=== PATIENT | female | born 1995 | race Asian ===

== ENCOUNTER 2023-01-08 05:57 | Inpatient (IN) ==
[2023-01-08] MEDS ORDERED: LIDOCAINE 1% LOCAL 20 ML VIAL INFIL PRN (07:34)
[2023-01-08] MEDS ORDERED: OXYTOCIN 30 UNITS/500 ML BAG IV PRN ×2 (07:34→07:39)
--- NOTE | 2023-01-08 07:45 | History & Physical Report ---
Date of Service January 08, 2023 Assessment & Plan (1) Supervision of normal first : Plan: Patient is a 27-year-old G1, P0 currently at 40 weeks 0 days gestational age with rupture of membranes. 1. Fetus: Cat 1 2. Labor: SROM without labor. Will start oxytocin. 3. GBS negative 4. Vitals: WNL (2) SROM (spontaneous rupture of membranes): History of Present Illness Primary Care Provider: NO PCP Patient is a 27-year-old G1, P0 currently at 40 weeks 0 days gestational age. Patient presents with bleeding and discharge. She is reporting some irregular contractions and is unsure about leakage of fluid. has been uncomplicated to date. OB Labs: Blood Type O Positive 06/01/22 Antibody Screen NEGATIVE 06/01/22 Hemoglobin 10.0 g/dl (12.0-16.0) L 10/19/22 Hematocrit 31.5 % (37.0-47.0) L 10/19/22 Mean Corpuscular Volume 83.4 fL (80.0-100.0) 06/01/22 Platelet Count 208 K/uL (130-400) 06/01/22 Rubella IgG Antibody Immune (Immune) 06/01/22 Rapid Plasma Reagin Nonreactive (Nonreactive) 06/01/22 Hepatitis B Surface Antigen. NON-REACTIVE (NON-REACTIVE) 06/01/22 Hepatitis C Antibody (EIA) NON-REACTIVE (NON-REACTIVE) 06/01/22 HIV (1&2) Ag and Ab Confirmation NON-REACTIVE (NON-REACTIVE) 06/01/22 Glucose 1 Hour 50 gm Load 111 mg/dl (70-130) 10/19/22 OB Optional Labs: Chlamydia trachomatis RNA Not Detected (NotDetected) 06/01/22 Neisseria gonorrhoeae RNA Not Detected (NotDetected) 06/01/22 Labs Reviewed: Declines cf/sma/cfdna/quad screen--mln Allergies Allergy/AdvReac Type Severity Reaction Status Date / Time No Known Allergies Allergy Verified 01/01/23 13:47 Home Medications Medication Instructions Recorded Confirmed Type prenat.vits,ector,yta-[id number]-xxpzl 1 tab PO DAILY 05/29/22 01/08/23 History ferrous sulfate See Rx Instructions .Route .COMPLEX 11/13/22 01/08/23 History Patient History Medical History (Updated 01/08/23 @ 07:44 by Gordo Kasper MD) History of chicken pox Surgical History (Updated 05/29/22 @ 13:24 by Agnieszka Dickson) No history of previous surgery Family History (Updated 05/29/22 @ 13:06 by Agnieszka Dickson) Denies family history of Ovarian cancer Breast cancer Colorectal cancer Social History (Updated 05/29/22 @ 13:08 by Agnieszka Dickson) Smoking Status: Never smoker Do You Dip or Chew Tobacco: No; Hx Alcohol Use: No Hx Substance Use: No Preferred Language: Persian Communication Ability: Effective Janitor Cleaner Required: No Beliefs That Will Affect Care: None marital status: marital status details: Luis Antonio (31) [phone] Current Living Situation: Spouse Current Living Situation Comment: lives with spouse, no pets current occupational status: unemployed Other Information That Helps Us Care for You: No Feels Safe at Home: Yes Safety Concerns: Feels Safe At This Time Physical Exam Constitutional: WD/WN, vitals as above Gastrointestinal (Abdomen): Percussion/Palpation: abdomen soft; abdomen nontender, no guarding and abdomen not rigid Psychiatric: A+Ox3, euthymic affect Genitourinary: normal external appearance OB Exam Abdomen: + vertex Manual OB Exam: + cervical dilation fingertip, + cervical effacement 50% and + station high OB Exam Monitor Tracing: + external FHT monitor used, + external uterine monitor used, + category I and + normal FHT variability There is noted to be a roughly golf ball sized clot on speculum exam. No bright red bleeding noted. Urine was noted to be bloody. There is noted to be equivocal pooling and positive ferning. Results & Data Vital Signs (Past 12 Hours) Vital Signs Temp Pulse Resp BP 01/08/23 06:22 36.7 C 18 01/08/23 07:10 16 01/08/23 07:10 36.4 C L 16 01/08/23 07:11 83 01/08/23 07:11 119/78 01/08/23 06:19 75 121/77 Coding Level of Care Code None Diagnoses Supervision of normal first Z34.00 SROM (spontaneous rupture of membranes)
[2023-01-08 08:23] LABS: Hematocrit (blood only) 37.9 % (37.0-47.0); Hemoglobin 12.1 g/dl (12.0-16.0); Mean Corpuscular Hemoglobin 26.1 pg (25.0-34.0); Mean Corpuscular Hgb Conc 31.9 g/dL (32.0-36.0); Mean Corpuscular Volume 81.9 fL (80.0-100.0); Mean Platelet Volume 11.6 fL (9.4-12.4); Platelet Count 191 K/uL (130-400); RDW Standard Deviation 53.1 fL (36.4-46.3); Red Blood Count 4.63 M/uL (4.20-5.40); White Blood Count 13.69 K/ul (4.8-10.8)
[2023-01-08] MEDS: LACTATED RINGER'S 1,000 ML IV PRN ×3 (08:25→18:37)
[2023-01-08] MEDS ORDERED: ePHEDrine sulfate 50 MG/ML AMP ONE (13:28)
[2023-01-08] MEDS ORDERED: fentaNYL citrate PF 100 MCG/2 ML VIAL ONE (13:29)
[2023-01-08] MEDS ORDERED: SODIUM CHLORIDE 0.9% PF INJ 10 ML VIAL ONE (13:29)
[2023-01-08] MEDS ORDERED: LIDOCAINE 2%/EPINEPHRINE 1:200,000 20 ML PF ONE (13:29)
[2023-01-08] MEDS ORDERED: fentaNYL 2MCG/ML ROPIVACAINE 1.25MG/ML 100 ML BAG EPI ONE (13:29)
[2023-01-08] MEDS ORDERED: BUPIVACAINE 0.25% PF 30 ML VIAL ONE (13:29)
--- NOTE | 2023-01-08 13:33 | Labor Progress Brief Note ---
Date of Service January 08, 2023 Subjective Getting uncomfortable Assessment & Plan (1) SROM (spontaneous rupture of membranes): Plan: 27 yo G1 at 40 wga admitted w/ srom VSS fetus cat 1 Labor - pit at 8, continue induction GBS neg epidural prn Admission and Anticipated Discharge Date Admission Date: January 08, 2023 Physical Exam Genitourinary: Manual OB Exam: + cervical dilation 1 cm, + cervical effacement 70% and + station -2 OB Exam Monitor Tracing: + external FHT monitor used, + external uterine monitor used (q3) and + category I (130/mod/+accel/-decel) Results & Data Vital Signs (Past 12 Hours) Vital Signs Temp Pulse Resp BP 01/08/23 06:22 98.1 F 18 01/08/23 13:03 74 01/08/23 13:03 102/71 01/08/23 12:03 75 01/08/23 12:03 108/72 01/08/23 11:03 20 01/08/23 11:03 98.2 F 20 01/08/23 11:03 82 01/08/23 11:03 112/70 01/08/23 10:03 80 01/08/23 10:03 105/70 01/08/23 09:02 20 01/08/23 09:02 98.2 F 20 01/08/23 09:02 78 01/08/23 09:02 109/69 01/08/23 08:29 86 01/08/23 08:29 112/70 01/08/23 07:10 16 01/08/23 07:10 97.5 F L 16 01/08/23 07:11 83 01/08/23 07:11 119/78 01/08/23 06:19 75 121/77 Coding Level of Care Code None Diagnoses SROM (spontaneous rupture of membranes)
--- NOTE | 2023-01-08 14:23 | Anesthesiology Consultation ---
Date of Service January 08, 2023 Assessment & Plan Chart Review Chart Review: Acceptable Risk for Labor Epidural Consults Requested none History Height/Weight Height: 5 ft 2 in Weight: 75.843 kg Allergies Allergy/AdvReac Type Severity Reaction Status Date / Time No Known Allergies Allergy Verified 01/01/23 13:47 Medications Home Medications Medication Instructions Recorded Confirmed Last Taken prenat.vits,ector,bek-ezxw-yeytl 1 tab PO DAILY 05/29/22 01/08/23 01/07/23 08:00 ferrous sulfate See Rx Instructions .Route .COMPLEX 11/13/22 01/08/23 01/06/23 08:00 Active Medications Generic Name Dose Route Start Last Admin Trade Name Freq PRN Reason Stop Dose Admin Lactated Ringer's 1,000 mls @ 125 mls/hr 01/08/23 07:34 01/08/23 13:46 Lr IV 01/10/23 07:33 999 mls/hr .Q8H PRN Administration L&D Protocol Protocol Oxytocin 30 units in 500 mls @ 8 mls/hr 01/08/23 07:39 01/08/23 10:00 Pitocin IV 01/10/23 07:38 0.48 units/hr .Q24H PRN 8 mls/hr Labor Induction/Augmentation Titration Protocol 0.48 UNITS/HR Past Medical History Medical History (Updated 01/08/23 @ 07:44 by Gordo Kasper MD) History of chicken pox Past Family History Family History (Updated 05/29/22 @ 13:06 by Agnieszka Dickson) Denies family history of Ovarian cancer Breast cancer Colorectal cancer Past Surgical History Surgical History (Updated 05/29/22 @ 13:24 by Agnieszka Dickson) No history of previous surgery Social History Smoking Status: Never smoker Do You Dip or Chew Tobacco: No Hx Alcohol Use: No Hx Substance Use: No Physical Exam Vital Signs Last Vital Signs Temp 36.8 C 01/08/23 11:03 Pulse 78 01/08/23 14:19 Resp 20 01/08/23 11:03 BP 102/57 L 01/08/23 14:19 Pulse Ox 100 01/08/23 14:17 Testing Laboratory Results 01/08/23 08:01
--- NOTE | 2023-01-08 14:24 | Anesthesiology Consultation ---
Date of Service January 08, 2023 Assessment & Plan Chart Review Chart Review: Acceptable Risk for Labor Epidural Consults Requested none History Height/Weight Height: 5 ft 2 in Weight: 75.843 kg Allergies Allergy/AdvReac Type Severity Reaction Status Date / Time No Known Allergies Allergy Verified 01/01/23 13:47 Medications Home Medications Medication Instructions Recorded Confirmed Last Taken prenat.vits,ector,sjm-ofhq-mdpky 1 tab PO DAILY 05/29/22 01/08/23 01/07/23 08:00 ferrous sulfate See Rx Instructions .Route .COMPLEX 11/13/22 01/08/23 01/06/23 08:00 Active Medications Generic Name Dose Route Start Last Admin Trade Name Freq PRN Reason Stop Dose Admin Lactated Ringer's 1,000 mls @ 125 mls/hr 01/08/23 07:34 01/08/23 13:46 Lr IV 01/10/23 07:33 999 mls/hr .Q8H PRN Administration L&D Protocol Protocol Oxytocin 30 units in 500 mls @ 8 mls/hr 01/08/23 07:39 01/08/23 10:00 Pitocin IV 01/10/23 07:38 0.48 units/hr .Q24H PRN 8 mls/hr Labor Induction/Augmentation Titration Protocol 0.48 UNITS/HR Past Medical History Medical History (Updated 01/08/23 @ 07:44 by Gordo Kasper MD) History of chicken pox Past Family History Family History (Updated 05/29/22 @ 13:06 by Agnieszka Dickson) Denies family history of Ovarian cancer Breast cancer Colorectal cancer Past Surgical History Surgical History (Updated 05/29/22 @ 13:24 by Agnieszka Dickson) No history of previous surgery Social History Smoking Status: Never smoker Do You Dip or Chew Tobacco: No Hx Alcohol Use: No Hx Substance Use: No Physical Exam Vital Signs Last Vital Signs Temp 36.8 C 01/08/23 11:03 Pulse 79 01/08/23 14:22 Resp 20 01/08/23 11:03 BP 102/57 L 01/08/23 14:19 Pulse Ox 100 01/08/23 14:22 Testing Laboratory Results 01/08/23 08:01
[2023-01-08] MEDS ORDERED: ePHEDrine sulfate 50 MG/ML AMP IV PRN (14:26)
[2023-01-08] MEDS ORDERED: BUPIVACAINE 0.25% PF 30 ML VIAL EPI STA (14:26)
[2023-01-08] MEDS ORDERED: NALOXONE HCL 0.4 MG/1 ML VIAL/CARP IV PRN (14:26)
[2023-01-08] MEDS ORDERED: SODIUM CHLORIDE 0.9% PF INJ 10 ML VIAL EPI STA (14:26)
[2023-01-08] MEDS ORDERED: fentaNYL citrate PF 100 MCG/2 ML VIAL EPI STA (14:26)
[2023-01-08] MEDS ORDERED: SODIUM CHLORIDE 0.9% PF INJ 10 ML VIAL EPI PRN (14:26)
[2023-01-08] MEDS ORDERED: NALBUPHINE HCL INJ 10 MG/ML AMP IV PRN (14:26)
[2023-01-08] MEDS ORDERED: BUPIVACAINE 0.25% PF 30 ML VIAL EPI PRN (14:26)
[2023-01-08] MEDS ORDERED: ROPIVACAINE 0.5% PF 5 MG/ML 20 ML VIAL EPI PRN (14:26)
[2023-01-08] MEDS ORDERED: diphenhydrAMINE 50 MG/ML VIAL IV PRN (14:26)
[2023-01-08] MEDS ORDERED: LIDOCAINE 2% MPF LOCAL 5 ML VIAL EPI PRN (14:26)
[2023-01-08] MEDS ORDERED: NALOXONE HCL 1 MG in SODIUM CHLORIDE 0.9% 1000ML 1,000 ML IV PRN (14:26)
[2023-01-08] MEDS ORDERED: LIDOCAINE 2%/EPINEPHRINE 1:200,000 20 ML PF EPI STA (14:26)
[2023-01-08] MEDS ORDERED: fentaNYL citrate PF 100 MCG/2 ML VIAL EPI PRN (14:26)
--- NOTE | 2023-01-08 18:15 | Labor Progress Brief Note ---
Date of Service January 08, 2023 Subjective Comfortable with epidural Assessment & Plan (1) SROM (spontaneous rupture of membranes): Plan Continue IOL Admission and Anticipated Discharge Date Admission Date: January 08, 2023 Physical Exam Genitourinary: / Rupture of a forebag for small amount of bloody show mixed with clear fluid. Vertex palpable, not well applied FHT Cat 1 [place] Q2 Pit @ 14 Results & Data Vital Signs (Past 12 Hours) Vital Signs Temp Pulse Resp BP Pulse Ox 01/08/23 06:22 98.1 F 18 01/08/23 18:07 100 01/08/23 18:07 78 01/08/23 18:06 92 01/08/23 18:05 83 01/08/23 18:06 95 H 01/08/23 18:05 112/70 01/08/23 18:02 92 01/08/23 18:02 99 H 01/08/23 17:57 100 01/08/23 17:57 90 01/08/23 17:54 92 01/08/23 17:54 82 01/08/23 17:52 100 01/08/23 17:52 79 01/08/23 17:49 74 01/08/23 17:49 113/66 01/08/23 17:47 99 01/08/23 17:47 84 01/08/23 17:45 92 01/08/23 17:45 81 01/08/23 17:42 94 01/08/23 17:42 72 01/08/23 17:37 99 01/08/23 17:37 75 01/08/23 17:35 80 01/08/23 17:35 90/51 L 01/08/23 17:32 99 01/08/23 17:32 74 01/08/23 17:27 99 01/08/23 17:27 73 01/08/23 17:22 99 01/08/23 17:22 72 01/08/23 17:20 71 01/08/23 17:20 91/51 L 01/08/23 17:17 100 01/08/23 17:17 103 H 01/08/23 17:12 100 01/08/23 17:12 70 01/08/23 17:07 100 01/08/23 17:07 81 01/08/23 17:04 71 01/08/23 17:04 104/66 01/08/23 17:02 100 01/08/23 17:02 79 01/08/23 16:57 99 01/08/23 16:57 79 01/08/23 16:52 100 01/08/23 16:52 78 01/08/23 16:50 76 01/08/23 16:50 104/63 01/08/23 16:47 100 01/08/23 16:47 78 01/08/23 16:36 20 01/08/23 16:36 98.4 F 20 01/08/23 16:42 100 01/08/23 16:42 76 01/08/23 16:37 100 01/08/23 16:37 88 01/08/23 16:36 70 01/08/23 16:36 108/72 01/08/23 16:32 100 01/08/23 16:32 85 01/08/23 16:27 100 01/08/23 16:27 98 H 01/08/23 16:22 100 01/08/23 16:22 79 01/08/23 16:19 81 01/08/23 16:19 117/74 01/08/23 16:17 100 01/08/23 16:17 84 01/08/23 16:15 87 L 01/08/23 16:15 87 01/08/23 16:12 98 01/08/23 16:12 86 01/08/23 15:05 20 01/08/23 15:05 97.9 F 20 01/08/23 16:07 100 01/08/23 16:07 85 01/08/23 16:05 80 01/08/23 16:05 101/68 01/08/23 16:02 96 01/08/23 16:02 85 01/08/23 15:57 100 01/08/23 15:57 73 01/08/23 15:52 100 01/08/23 15:52 95 H 01/08/23 15:49 83 01/08/23 15:49 102/68 01/08/23 15:47 99 01/08/23 15:47 77 01/08/23 15:42 99 01/08/23 15:42 76 01/08/23 15:37 100 01/08/23 15:37 89 01/08/23 15:34 88 01/08/23 15:34 105/69 01/08/23 15:32 100 01/08/23 15:32 79 01/08/23 15:27 100 01/08/23 15:27 74 01/08/23 15:22 100 01/08/23 15:22 85 01/08/23 15:20 82 01/08/23 15:20 107/72 01/08/23 15:17 100 01/08/23 15:17 88 01/08/23 15:12 99 01/08/23 15:12 95 H 01/08/23 15:07 100 01/08/23 15:07 75 01/08/23 15:05 82 01/08/23 15:05 103/67 01/08/23 15:02 100 01/08/23 15:02 73 01/08/23 14:57 100 01/08/23 14:57 85 01/08/23 14:52 100 01/08/23 14:52 75 01/08/23 14:51 74 01/08/23 14:51 108/66 01/08/23 14:47 100 01/08/23 14:47 84 01/08/23 14:42 100 01/08/23 14:42 80 01/08/23 14:37 100 01/08/23 14:37 82 01/08/23 14:34 86 01/08/23 14:34 117/71 01/08/23 14:32 100 01/08/23 14:32 79 01/08/23 14:29 91 01/08/23 14:29 77 01/08/23 14:28 73 01/08/23 14:28 98/55 L 01/08/23 14:27 100 01/08/23 14:27 77 01/08/23 14:23 71 01/08/23 14:23 108/63 01/08/23 14:22 100 01/08/23 14:22 79 01/08/23 14:19 78 01/08/23 14:19 102/57 L 01/08/23 14:17 100 01/08/23 14:17 77 01/08/23 14:12 99 01/08/23 14:12 79 01/08/23 14:12 75 01/08/23 14:12 101/65 01/08/23 14:10 69 01/08/23 14:10 102/66 01/08/23 14:07 99 01/08/23 14:07 73 01/08/23 14:08 76 01/08/23 14:08 103/66 01/08/23 14:06 72 01/08/23 14:06 103/63 01/08/23 14:04 70 01/08/23 14:04 104/65 01/08/23 14:02 98 01/08/23 14:02 71 01/08/23 14:02 80 01/08/23 14:02 106/71 01/08/23 14:00 94 01/08/23 14:00 82 01/08/23 14:00 103/64 01/08/23 13:58 84 01/08/23 13:58 102/65 01/08/23 13:57 96 01/08/23 13:57 78 01/08/23 13:52 99 01/08/23 13:52 80 01/08/23 13:50 93 01/08/23 13:50 89 01/08/23 13:47 98 01/08/23 13:47 74 01/08/23 13:42 98 01/08/23 13:42 89 01/08/23 13:37 98 01/08/23 13:37 71 01/08/23 13:03 74 01/08/23 13:03 102/71 01/08/23 12:03 75 01/08/23 12:03 108/72 01/08/23 11:03 20 01/08/23 11:03 98.2 F 20 01/08/23 11:03 82 01/08/23 11:03 112/70 01/08/23 10:03 80 01/08/23 10:03 105/70 01/08/23 09:02 20 01/08/23 09:02 98.2 F 20 01/08/23 09:02 78 01/08/23 09:02 109/69 01/08/23 08:29 86 01/08/23 08:29 112/70 01/08/23 07:10 16 01/08/23 07:10 97.5 F L 16 01/08/23 07:11 83 01/08/23 07:11 119/78 01/08/23 06:19 75 121/77 Coding Level of Care Code None Diagnoses SROM (spontaneous rupture of membranes)
--- NOTE | 2023-01-08 23:17 | Labor Progress Brief Note ---
Date of Service January 08, 2023 Subjective Comfortable with epidural Assessment & Plan (1) SROM (spontaneous rupture of membranes): Plan: IOL continues, progress has been demonstrated over the last few checks. Significant descent now head well applied. Admission and Anticipated Discharge Date Admission Date: January 08, 2023 Physical Exam Genitourinary: 90/0 Pit @ 16 [place] Q2m FHT Cat 1 Results & Data Vital Signs (Past 12 Hours) Vital Signs Temp Pulse Resp BP Pulse Ox 01/08/23 19:06 98.1 F 18 01/08/23 23:12 100 01/08/23 23:12 82 01/08/23 23:07 96 01/08/23 23:07 106 H 01/08/23 23:04 78 01/08/23 23:04 107/60 01/08/23 23:02 98 01/08/23 23:02 79 01/08/23 23:00 18 01/08/23 23:00 18 01/08/23 22:57 98 01/08/23 22:57 75 01/08/23 22:52 98 01/08/23 22:52 77 01/08/23 22:49 74 01/08/23 22:49 108/55 L 01/08/23 22:47 97 01/08/23 22:47 77 01/08/23 22:42 98 01/08/23 22:42 96 H 01/08/23 22:37 98 01/08/23 22:37 79 01/08/23 22:30 18 01/08/23 22:30 18 01/08/23 22:35 78 01/08/23 22:35 100/62 01/08/23 22:32 98 01/08/23 22:32 79 01/08/23 22:27 97 01/08/23 22:27 78 01/08/23 22:00 20 01/08/23 22:00 20 01/08/23 22:22 97 01/08/23 22:22 75 01/08/23 22:21 78 01/08/23 22:21 99/60 L 01/08/23 22:17 98 01/08/23 22:17 80 01/08/23 22:12 97 01/08/23 22:12 78 01/08/23 22:07 99 01/08/23 22:07 80 01/08/23 22:04 75 01/08/23 22:04 94/53 L 01/08/23 22:02 97 01/08/23 22:02 80 01/08/23 21:57 98 01/08/23 21:57 82 01/08/23 21:30 18 01/08/23 21:30 18 01/08/23 21:52 98 01/08/23 21:52 77 01/08/23 21:35 99.1 F 01/08/23 21:50 75 01/08/23 21:50 97/54 L 01/08/23 21:47 99 01/08/23 21:47 78 01/08/23 21:42 97 01/08/23 21:42 77 01/08/23 21:37 99 01/08/23 21:37 96 H 01/08/23 21:34 97 H 01/08/23 21:34 110/75 01/08/23 21:32 98 01/08/23 21:32 89 01/08/23 21:30 94 01/08/23 21:30 97 H 01/08/23 21:27 91 01/08/23 21:27 86 01/08/23 21:25 92 01/08/23 21:25 91 H 01/08/23 21:22 98 01/08/23 21:22 85 01/08/23 21:20 85 01/08/23 21:20 113/77 01/08/23 21:17 99 01/08/23 21:17 90 01/08/23 21:12 99 01/08/23 21:12 87 01/08/23 21:07 100 01/08/23 21:07 83 01/08/23 21:00 18 01/08/23 21:00 18 01/08/23 21:05 95 H 01/08/23 21:05 119/77 01/08/23 21:02 95 01/08/23 21:02 98 H 01/08/23 20:57 100 01/08/23 20:57 90 01/08/23 20:52 97 01/08/23 20:52 86 01/08/23 20:49 82 01/08/23 20:49 113/70 01/08/23 20:47 97 01/08/23 20:47 93 H 01/08/23 20:42 99 01/08/23 20:42 80 01/08/23 20:37 100 01/08/23 20:37 82 01/08/23 20:34 75 01/08/23 20:34 111/66 01/08/23 20:32 100 01/08/23 20:32 89 01/08/23 20:30 20 01/08/23 20:30 20 01/08/23 20:27 100 01/08/23 20:27 79 01/08/23 20:22 100 01/08/23 20:22 90 01/08/23 20:20 90 01/08/23 20:20 87 01/08/23 20:19 82 01/08/23 20:19 111/67 01/08/23 20:17 100 01/08/23 20:17 83 01/08/23 20:12 99 01/08/23 20:12 83 01/08/23 20:00 18 01/08/23 20:00 18 01/08/23 20:07 98 01/08/23 20:07 78 01/08/23 19:30 18 01/08/23 19:30 18 01/08/23 20:05 85 01/08/23 20:05 109/65 01/08/23 20:02 100 01/08/23 20:02 77 01/08/23 19:57 98 01/08/23 19:57 80 01/08/23 19:52 98 01/08/23 19:52 80 01/08/23 19:50 75 01/08/23 19:50 109/68 01/08/23 19:47 98 01/08/23 19:47 76 01/08/23 19:42 96 01/08/23 19:42 79 01/08/23 19:37 96 01/08/23 19:37 78 01/08/23 19:34 78 01/08/23 19:34 97/52 L 01/08/23 19:32 97 01/08/23 19:32 87 01/08/23 19:27 96 01/08/23 19:27 81 01/08/23 19:22 96 01/08/23 19:22 83 01/08/23 19:20 80 01/08/23 19:20 95/55 L 01/08/23 19:17 96 01/08/23 19:17 79 01/08/23 19:12 99 01/08/23 19:12 83 01/08/23 19:07 100 01/08/23 19:07 75 01/08/23 19:05 79 01/08/23 19:05 120/73 01/08/23 19:03 92 01/08/23 19:03 88 01/08/23 19:02 100 01/08/23 19:02 74 01/08/23 18:57 100 01/08/23 18:57 79 01/08/23 18:52 99 01/08/23 18:52 86 01/08/23 18:50 76 01/08/23 18:50 104/68 01/08/23 18:47 99 01/08/23 18:47 76 01/08/23 18:42 100 01/08/23 18:42 80 01/08/23 18:37 100 01/08/23 18:37 77 01/08/23 18:34 82 01/08/23 18:34 110/74 01/08/23 18:32 100 01/08/23 18:32 85 01/08/23 18:27 100 01/08/23 18:27 83 01/08/23 18:22 100 01/08/23 18:22 90 01/08/23 18:19 83 01/08/23 18:19 109/72 01/08/23 18:17 100 01/08/23 18:17 81 01/08/23 18:17 92 01/08/23 18:17 84 01/08/23 18:12 100 01/08/23 18:12 85 01/08/23 18:07 100 01/08/23 18:07 78 01/08/23 18:06 92 01/08/23 18:05 83 01/08/23 18:06 95 H 01/08/23 18:05 112/70 01/08/23 18:02 92 01/08/23 18:02 99 H 01/08/23 17:57 100 01/08/23 17:57 90 01/08/23 17:54 92 01/08/23 17:54 82 01/08/23 17:52 100 01/08/23 17:52 79 01/08/23 17:49 74 01/08/23 17:49 113/66 01/08/23 17:47 99 01/08/23 17:47 84 01/08/23 17:45 92 01/08/23 17:45 81 01/08/23 17:42 94 01/08/23 17:42 72 01/08/23 17:37 99 01/08/23 17:37 75 01/08/23 17:35 80 01/08/23 17:35 90/51 L 01/08/23 17:32 99 01/08/23 17:32 74 01/08/23 17:27 99 01/08/23 17:27 73 01/08/23 17:22 99 01/08/23 17:22 72 01/08/23 17:20 71 01/08/23 17:20 91/51 L 01/08/23 17:17 100 01/08/23 17:17 103 H 01/08/23 17:12 100 01/08/23 17:12 70 01/08/23 17:07 100 01/08/23 17:07 81 01/08/23 17:04 71 01/08/23 17:04 104/66 01/08/23 17:02 100 01/08/23 17:02 79 01/08/23 16:57 99 01/08/23 16:57 79 01/08/23 16:52 100 01/08/23 16:52 78 01/08/23 16:50 76 01/08/23 16:50 104/63 01/08/23 16:47 100 01/08/23 16:47 78 01/08/23 16:36 20 01/08/23 16:36 98.4 F 20 01/08/23 16:42 100 01/08/23 16:42 76 01/08/23 16:37 100 01/08/23 16:37 88 01/08/23 16:36 70 01/08/23 16:36 108/72 01/08/23 16:32 100 01/08/23 16:32 85 01/08/23 16:27 100 01/08/23 16:27 98 H 01/08/23 16:22 100 01/08/23 16:22 79 01/08/23 16:19 81 01/08/23 16:19 117/74 01/08/23 16:17 100 01/08/23 16:17 84 01/08/23 16:15 87 L 01/08/23 16:15 87 01/08/23 16:12 98 01/08/23 16:12 86 01/08/23 15:05 20 01/08/23 15:05 97.9 F 20 01/08/23 16:07 100 01/08/23 16:07 85 01/08/23 16:05 80 01/08/23 16:05 101/68 01/08/23 16:02 96 01/08/23 16:02 85 01/08/23 15:57 100 01/08/23 15:57 73 01/08/23 15:52 100 01/08/23 15:52 95 H 01/08/23 15:49 83 01/08/23 15:49 102/68 01/08/23 15:47 99 01/08/23 15:47 77 01/08/23 15:42 99 01/08/23 15:42 76 01/08/23 15:37 100 01/08/23 15:37 89 01/08/23 15:34 88 01/08/23 15:34 105/69 01/08/23 15:32 100 01/08/23 15:32 79 01/08/23 15:27 100 01/08/23 15:27 74 01/08/23 15:22 100 01/08/23 15:22 85 01/08/23 15:20 82 01/08/23 15:20 107/72 01/08/23 15:17 100 01/08/23 15:17 88 01/08/23 15:12 99 01/08/23 15:12 95 H 01/08/23 15:07 100 01/08/23 15:07 75 01/08/23 15:05 82 01/08/23 15:05 103/67 01/08/23 15:02 100 01/08/23 15:02 73 01/08/23 14:57 100 01/08/23 14:57 85 01/08/23 14:52 100 01/08/23 14:52 75 01/08/23 14:51 74 01/08/23 14:51 108/66 01/08/23 14:47 100 01/08/23 14:47 84 01/08/23 14:42 100 01/08/23 14:42 80 01/08/23 14:37 100 01/08/23 14:37 82 01/08/23 14:34 86 01/08/23 14:34 117/71 01/08/23 14:32 100 01/08/23 14:32 79 01/08/23 14:29 91 01/08/23 14:29 77 01/08/23 14:28 73 01/08/23 14:28 98/55 L 01/08/23 14:27 100 01/08/23 14:27 77 01/08/23 14:23 71 01/08/23 14:23 108/63 01/08/23 14:22 100 01/08/23 14:22 79 01/08/23 14:19 78 01/08/23 14:19 102/57 L 01/08/23 14:17 100 01/08/23 14:17 77 01/08/23 14:12 99 01/08/23 14:12 79 01/08/23 14:12 75 01/08/23 14:12 101/65 01/08/23 14:10 69 01/08/23 14:10 102/66 01/08/23 14:07 99 01/08/23 14:07 73 01/08/23 14:08 76 01/08/23 14:08 103/66 01/08/23 14:06 72 01/08/23 14:06 103/63 01/08/23 14:04 70 01/08/23 14:04 104/65 01/08/23 14:02 98 01/08/23 14:02 71 01/08/23 14:02 80 01/08/23 14:02 106/71 01/08/23 14:00 94 01/08/23 14:00 82 01/08/23 14:00 103/64 01/08/23 13:58 84 01/08/23 13:58 102/65 01/08/23 13:57 96 01/08/23 13:57 78 01/08/23 13:52 99 01/08/23 13:52 80 01/08/23 13:50 93 01/08/23 13:50 89 01/08/23 13:47 98 01/08/23 13:47 74 01/08/23 13:42 98 01/08/23 13:42 89 01/08/23 13:37 98 01/08/23 13:37 71 01/08/23 13:03 74 01/08/23 13:03 102/71 01/08/23 12:03 75 01/08/23 12:03 108/72 Coding Level of Care Code None Diagnoses SROM (spontaneous rupture of membranes)
[2023-01-09] MEDS: fentaNYL 2MCG/ML ROPIVACAINE 1.25MG/ML 100 ML BAG EPI PRN ×2 (00:16→09:03)
[2023-01-09] MEDS: LACTATED RINGER'S 1,000 ML IV PRN ×2 (02:29→08:11)
--- NOTE | 2023-01-09 07:18 | Labor Progress Brief Note ---
Date of Service January 09, 2023 Subjective Comfortable with epidural Assessment & Plan (1) SROM (spontaneous rupture of membranes): Plan: Patient and FOB counseled on the swelling in the anterior cervical lip, and the slowness of cervical change, being warning signs of possible CPD. At this time there is definite change from prior exam, however, and patient remains very motivated to avoid , and desires continuation of IOL. Admission and Anticipated Discharge Date Admission Date: January 08, 2023 Physical Exam Genitourinary: /+1 with significant molding, and notable swelling of the anterior cervical lip FHT 160 mod tamiko -acc -dec [place] Q2 Pit @ 16 Results & Data Vital Signs (Past 12 Hours) Vital Signs Temp Pulse Resp BP Pulse Ox 01/09/23 07:07 82 99 01/09/23 07:00 18 01/09/23 07:00 18 01/09/23 07:05 98.2 F 81 16 109/62 01/09/23 07:02 83 100 01/09/23 06:57 84 100 01/09/23 06:52 80 100 01/09/23 06:50 80 107/63 01/09/23 06:47 79 100 01/09/23 06:30 20 01/09/23 06:30 20 01/09/23 06:42 83 100 01/09/23 06:37 87 99 01/09/23 06:34 77 114/68 01/09/23 06:32 82 97 01/09/23 06:27 89 96 01/09/23 06:22 90 97 01/09/23 06:20 95 H 109/66 01/09/23 06:17 96 H 99 01/09/23 06:00 18 01/09/23 06:00 18 01/09/23 06:12 91 H 98 01/09/23 06:07 90 96 01/09/23 06:06 91 H 99/55 L 01/09/23 06:02 88 97 01/09/23 05:57 85 98 01/09/23 05:52 82 98 01/09/23 05:50 99.0 F 01/09/23 05:49 80 98/56 L 01/09/23 05:47 97 H 99 01/09/23 05:42 108 H 98 01/09/23 05:30 18 01/09/23 05:30 18 01/09/23 05:37 92 H 96 01/09/23 05:34 86 107/65 01/09/23 05:32 86 97 01/09/23 05:27 88 96 01/09/23 05:22 90 97 01/09/23 05:19 83 109/68 01/09/23 05:17 90 97 01/09/23 05:12 89 96 01/09/23 05:07 88 96 01/09/23 05:04 82 112/72 01/09/23 05:02 84 98 01/09/23 04:57 84 98 01/09/23 04:52 84 97 01/09/23 04:49 82 107/70 01/09/23 04:47 80 97 01/09/23 04:42 80 97 01/09/23 04:37 84 98 01/09/23 04:34 83 110/71 01/09/23 04:32 78 99 01/09/23 04:27 79 98 01/09/23 04:22 77 100 01/09/23 04:19 75 106/63 01/09/23 04:17 80 99 01/09/23 04:12 78 98 01/09/23 04:07 83 98 01/09/23 04:04 76 107/63 01/09/23 04:02 77 98 01/09/23 04:00 18 01/09/23 04:00 18 01/09/23 03:57 93 H 98 01/09/23 03:52 92 H 100 01/09/23 03:49 90 115/71 01/09/23 03:47 98.4 F 79 98 01/09/23 03:42 83 98 01/09/23 03:37 79 98 01/09/23 03:34 81 112/68 01/09/23 03:30 20 01/09/23 03:30 20 01/09/23 03:32 81 99 01/09/23 03:27 78 100 01/09/23 03:22 84 100 01/09/23 03:19 73 100/57 L 01/09/23 03:17 75 99 01/09/23 03:12 76 97 01/09/23 03:07 76 99 01/09/23 03:05 78 103/61 01/09/23 03:00 18 01/09/23 03:00 18 01/09/23 03:02 79 100 01/09/23 02:57 88 100 01/09/23 02:52 79 99 01/09/23 02:49 78 98/60 L 01/09/23 02:47 81 97 01/09/23 02:42 80 97 01/09/23 02:37 76 98 01/09/23 02:35 86 105/64 01/09/23 02:32 83 97 01/09/23 02:30 18 01/09/23 02:30 18 01/09/23 02:27 82 98 01/09/23 02:22 83 98 01/09/23 02:19 90 123/72 01/09/23 02:17 87 98 01/09/23 02:12 87 98 01/09/23 02:07 92 H 99 01/09/23 02:04 89 113/75 01/09/23 02:00 20 01/09/23 02:00 20 01/09/23 02:02 96 H 99 01/09/23 01:57 103 H 97 01/09/23 01:52 87 97 01/09/23 01:49 88 108/75 01/09/23 01:47 93 H 99 01/09/23 01:42 86 98 01/09/23 01:37 79 97 01/09/23 01:34 75 100/60 01/09/23 01:32 83 99 01/09/23 01:21 99.0 F 01/09/23 01:30 18 01/09/23 01:30 18 01/09/23 01:27 88 96 01/09/23 01:22 89 100 01/09/23 01:17 82 98 01/09/23 01:12 80 98 01/09/23 01:00 18 01/09/23 01:00 18 01/09/23 01:07 98 H 99 01/09/23 01:05 91 H 120/71 01/09/23 01:02 76 98 01/09/23 00:57 76 98 01/09/23 00:52 79 97 01/09/23 00:49 78 107/66 01/09/23 00:47 80 98 01/09/23 00:42 83 99 01/09/23 00:30 20 01/09/23 00:30 20 06/10/23 00:37 81 100 01/09/23 00:34 77 108/59 L 01/09/23 00:32 77 99 01/09/23 00:27 78 98 01/09/23 00:00 20 01/09/23 00:00 20 01/09/23 00:22 78 98 01/09/23 00:21 86 117/63 01/09/23 00:17 110 H 99 01/09/23 00:12 81 96 01/09/23 00:07 79 96 01/09/23 00:05 80 108/71 01/09/23 00:02 77 96 01/08/23 23:57 98 01/08/23 23:57 79 01/08/23 23:52 97 01/08/23 23:52 81 01/08/23 23:30 18 01/08/23 23:30 18 01/08/23 23:49 77 01/08/23 23:49 113/71 01/08/23 23:47 97 01/08/23 23:47 85 01/08/23 23:42 97 01/08/23 23:42 80 01/08/23 23:37 99 01/08/23 23:37 81 01/08/23 23:35 83 01/08/23 23:35 109/71 01/08/23 23:32 98 01/08/23 23:32 82 01/08/23 23:27 98 01/08/23 23:27 82 01/08/23 23:22 98 01/08/23 23:22 75 01/08/23 23:10 98.2 F 01/08/23 23:19 79 01/08/23 23:19 113/68 01/08/23 23:17 98 01/08/23 23:17 79 01/08/23 23:12 100 01/08/23 23:12 82 01/08/23 23:07 96 01/08/23 23:07 106 H 01/08/23 23:04 78 01/08/23 23:04 107/60 01/08/23 23:02 98 01/08/23 23:02 79 01/08/23 23:00 18 01/08/23 23:00 18 01/08/23 22:57 98 01/08/23 22:57 75 06/09/23 22:52 98 01/08/23 22:52 77 01/08/23 22:49 74 01/08/23 22:49 108/55 L 01/08/23 22:47 97 01/08/23 22:47 77 01/08/23 22:42 98 01/08/23 22:42 96 H 01/08/23 22:37 98 01/08/23 22:37 79 01/08/23 22:30 18 01/08/23 22:30 18 01/08/23 22:35 78 01/08/23 22:35 100/62 01/08/23 22:32 98 01/08/23 22:32 79 01/08/23 22:27 97 01/08/23 22:27 78 01/08/23 22:00 20 01/08/23 22:00 20 01/08/23 22:22 97 01/08/23 22:22 75 01/08/23 22:21 78 01/08/23 22:21 99/60 L 01/08/23 22:17 98 01/08/23 22:17 80 01/08/23 22:12 97 01/08/23 22:12 78 01/08/23 22:07 99 01/08/23 22:07 80 01/08/23 22:04 75 01/08/23 22:04 94/53 L 01/08/23 22:02 97 01/08/23 22:02 80 01/08/23 21:57 98 01/08/23 21:57 82 01/08/23 21:30 18 01/08/23 21:30 18 01/08/23 21:52 98 01/08/23 21:52 77 01/08/23 21:35 99.1 F 01/08/23 21:50 75 01/08/23 21:50 97/54 L 01/08/23 21:47 99 01/08/23 21:47 78 01/08/23 21:42 97 01/08/23 21:42 77 01/08/23 21:37 99 01/08/23 21:37 96 H 01/08/23 21:34 97 H 01/08/23 21:34 110/75 01/08/23 21:32 98 01/08/23 21:32 89 01/08/23 21:30 94 01/08/23 21:30 97 H 01/08/23 21:27 91 01/08/23 21:27 86 01/08/23 21:25 92 01/08/23 21:25 91 H 01/08/23 21:22 98 01/08/23 21:22 85 01/08/23 21:20 85 01/08/23 21:20 113/77 01/08/23 21:17 99 01/08/23 21:17 90 01/08/23 21:12 99 01/08/23 21:12 87 01/08/23 21:07 100 01/08/23 21:07 83 01/08/23 21:00 18 01/08/23 21:00 18 01/08/23 21:05 95 H 01/08/23 21:05 119/77 01/08/23 21:02 95 01/08/23 21:02 98 H 01/08/23 20:57 100 01/08/23 20:57 90 01/08/23 20:52 97 01/08/23 20:52 86 01/08/23 20:49 82 01/08/23 20:49 113/70 01/08/23 20:47 97 01/08/23 20:47 93 H 01/08/23 20:42 99 01/08/23 20:42 80 01/08/23 20:37 100 01/08/23 20:37 82 01/08/23 20:34 75 01/08/23 20:34 111/66 01/08/23 20:32 100 01/08/23 20:32 89 01/08/23 20:30 20 01/08/23 20:30 20 01/08/23 20:27 100 01/08/23 20:27 79 01/08/23 20:22 100 01/08/23 20:22 90 01/08/23 20:20 90 01/08/23 20:20 87 01/08/23 20:19 82 01/08/23 20:19 111/67 01/08/23 20:17 100 01/08/23 20:17 83 01/08/23 20:12 99 01/08/23 20:12 83 01/08/23 20:00 18 01/08/23 20:00 18 01/08/23 20:07 98 01/08/23 20:07 78 01/08/23 19:30 18 01/08/23 19:30 18 01/08/23 20:05 85 01/08/23 20:05 109/65 01/08/23 20:02 100 01/08/23 20:02 77 01/08/23 19:57 98 01/08/23 19:57 80 01/08/23 19:52 98 01/08/23 19:52 80 01/08/23 19:50 75 01/08/23 19:50 109/68 01/08/23 19:47 98 01/08/23 19:47 76 01/08/23 19:42 96 01/08/23 19:42 79 01/08/23 19:37 96 01/08/23 19:37 78 01/08/23 19:34 78 01/08/23 19:34 97/52 L 01/08/23 19:32 97 01/08/23 19:32 87 01/08/23 19:27 96 01/08/23 19:27 81 01/08/23 19:22 96 01/08/23 19:22 83 01/08/23 19:20 80 01/08/23 19:20 95/55 L 01/08/23 19:17 96 01/08/23 19:17 79 01/08/23 19:12 99 01/08/23 19:12 83 Coding Level of Care Code None Diagnoses SROM (spontaneous rupture of membranes)
--- NOTE | 2023-01-09 09:00 | Labor Progress Brief Note ---
Date of Service January 09, 2023 Subjective Comfortable with epidural Assessment & Plan (1) SROM (spontaneous rupture of membranes): Plan: 27 yo G1 at 40 1/7 [facility] admitted w/ prom VSS Fetus cat 1 Labor - pit now at 20, discussed the anterior lip as was previously noted. Discussed concerns regarding swelling as well, but can continue titration, consider iupc but can keep going up on pit if needed GBS neg epidural in place Admission and Anticipated Discharge Date Admission Date: January 08, 2023 Physical Exam Genitourinary: OB Exam Monitor Tracing: + external uterine monitor used (q3) and + category I (155-160/mod/+accel/-decel) SVE ~6/80/0 but anterior lip does have swelling as previously noted. Results & Data Vital Signs (Past 12 Hours) Vital Signs Temp Pulse Resp BP Pulse Ox 01/09/23 08:52 87 98 01/09/23 08:49 78 112/68 01/09/23 08:47 83 100 01/09/23 08:42 83 98 01/09/23 08:37 82 97 01/09/23 08:34 69 110/66 01/09/23 08:32 76 98 01/09/23 08:27 77 98 01/09/23 08:22 86 98 01/09/23 08:19 72 110/67 01/09/23 08:17 75 97 01/09/23 08:12 99.1 F 77 18 98 01/09/23 08:07 78 99 01/09/23 08:04 78 115/71 01/09/23 08:02 78 99 01/09/23 07:57 78 97 01/09/23 07:52 77 98 01/09/23 07:50 77 112/69 01/09/23 07:47 79 99 01/09/23 07:42 85 99 01/09/23 07:37 79 99 01/09/23 07:34 79 112/70 01/09/23 07:32 80 100 01/09/23 07:27 80 100 01/09/23 07:22 83 100 01/09/23 07:19 82 102/56 L 01/09/23 07:17 90 100 01/09/23 07:12 77 100 01/09/23 07:07 82 99 01/09/23 07:00 18 01/09/23 07:00 18 01/09/23 07:05 98.2 F 81 16 109/62 01/09/23 07:02 83 100 01/09/23 06:57 84 100 01/09/23 06:52 80 100 01/09/23 06:50 80 107/63 01/09/23 06:47 79 100 01/09/23 06:30 20 01/09/23 06:30 20 01/09/23 06:42 83 100 01/09/23 06:37 87 99 01/09/23 06:34 77 114/68 01/09/23 06:32 82 97 01/09/23 06:27 89 96 01/09/23 06:22 90 97 01/09/23 06:20 95 H 109/66 01/09/23 06:17 96 H 99 01/09/23 06:00 18 01/09/23 06:00 18 01/09/23 06:12 91 H 98 01/09/23 06:07 90 96 01/09/23 06:06 91 H 99/55 L 01/09/23 06:02 88 97 01/09/23 05:57 85 98 01/09/23 05:52 82 98 01/09/23 05:50 99.0 F 01/09/23 05:49 80 98/56 L 01/09/23 05:47 97 H 99 01/09/23 05:42 108 H 98 01/09/23 05:30 18 01/09/23 05:30 18 01/09/23 05:37 92 H 96 01/09/23 05:34 86 107/65 01/09/23 05:32 86 97 01/09/23 05:27 88 96 01/09/23 05:22 90 97 01/09/23 05:19 83 109/68 01/09/23 05:17 90 97 01/09/23 05:12 89 96 01/09/23 05:07 88 96 01/09/23 05:04 82 112/72 01/09/23 05:02 84 98 01/09/23 04:57 84 98 01/09/23 04:52 84 97 01/09/23 04:49 82 107/70 01/09/23 04:47 80 97 01/09/23 04:42 80 97 01/09/23 04:37 84 98 01/09/23 04:34 83 110/71 01/09/23 04:32 78 99 01/09/23 04:27 79 98 01/09/23 04:22 77 100 01/09/23 04:19 75 106/63 01/09/23 04:17 80 99 01/09/23 04:12 78 98 01/09/23 04:07 83 98 01/09/23 04:04 76 107/63 01/09/23 04:02 77 98 01/09/23 04:00 18 01/09/23 04:00 18 01/09/23 03:57 93 H 98 01/09/23 03:52 92 H 100 01/09/23 03:49 90 115/71 01/09/23 03:47 98.4 F 79 98 01/09/23 03:42 83 98 01/09/23 03:37 79 98 01/09/23 03:34 81 112/68 01/09/23 03:30 20 01/09/23 03:30 20 01/09/23 03:32 81 99 01/09/23 03:27 78 100 01/09/23 03:22 84 100 01/09/23 03:19 73 100/57 L 01/09/23 03:17 75 99 01/09/23 03:12 76 97 01/09/23 03:07 76 99 01/09/23 03:05 78 103/61 01/09/23 03:00 18 01/09/23 03:00 18 01/09/23 03:02 79 100 01/09/23 02:57 88 100 01/09/23 02:52 79 99 01/09/23 02:49 78 98/60 L 01/09/23 02:47 81 97 01/09/23 02:42 80 97 01/09/23 02:37 76 98 01/09/23 02:35 86 105/64 01/09/23 02:32 83 97 01/09/23 02:30 18 01/09/23 02:30 18 01/09/23 02:27 82 98 01/09/23 02:22 83 98 01/09/23 02:19 90 123/72 01/09/23 02:17 87 98 01/09/23 02:12 87 98 01/09/23 02:07 92 H 99 01/09/23 02:04 89 113/75 01/09/23 02:00 20 01/09/23 02:00 20 01/09/23 02:02 96 H 99 01/09/23 01:57 103 H 97 01/09/23 01:52 87 97 01/09/23 01:49 88 108/75 01/09/23 01:47 93 H 99 01/09/23 01:42 86 98 01/09/23 01:37 79 97 01/09/23 01:34 75 100/60 01/09/23 01:32 83 99 01/09/23 01:21 99.0 F 01/09/23 01:30 18 01/09/23 01:30 18 01/09/23 01:27 88 96 01/09/23 01:22 89 100 01/09/23 01:17 82 98 01/09/23 01:12 80 98 01/09/23 01:00 18 01/09/23 01:00 18 01/09/23 01:07 98 H 99 01/09/23 01:05 91 H 120/71 01/09/23 01:02 76 98 01/09/23 00:57 76 98 01/09/23 00:52 79 97 01/09/23 00:49 78 107/66 01/09/23 00:47 80 98 01/09/23 00:42 83 99 01/09/23 00:30 20 01/09/23 00:30 20 01/09/23 00:37 81 100 01/09/23 00:34 77 108/59 L 01/09/23 00:32 77 99 01/09/23 00:27 78 98 01/09/23 00:00 20 01/09/23 00:00 20 01/09/23 00:22 78 98 01/09/23 00:21 86 117/63 01/09/23 00:17 110 H 99 01/09/23 00:12 81 96 01/09/23 00:07 79 96 01/09/23 00:05 80 108/71 01/09/23 00:02 77 96 01/08/23 23:57 98 01/08/23 23:57 79 01/08/23 23:52 97 01/08/23 23:52 81 01/08/23 23:30 18 01/08/23 23:30 18 01/08/23 23:49 77 01/08/23 23:49 113/71 01/08/23 23:47 97 01/08/23 23:47 85 01/08/23 23:42 97 01/08/23 23:42 80 01/08/23 23:37 99 01/08/23 23:37 81 01/08/23 23:35 83 01/08/23 23:35 109/71 01/08/23 23:32 98 01/08/23 23:32 82 01/08/23 23:27 98 01/08/23 23:27 82 01/08/23 23:22 98 01/08/23 23:22 75 01/08/23 23:10 98.2 F 01/08/23 23:19 79 01/08/23 23:19 113/68 01/08/23 23:17 98 01/08/23 23:17 79 01/08/23 23:12 100 01/08/23 23:12 82 01/08/23 23:07 96 01/08/23 23:07 106 H 01/08/23 23:04 78 01/08/23 23:04 107/60 01/08/23 23:02 98 01/08/23 23:02 79 01/08/23 23:00 18 01/08/23 23:00 18 01/08/23 22:57 98 01/08/23 22:57 75 01/08/23 22:52 98 01/08/23 22:52 77 01/08/23 22:49 74 01/08/23 22:49 108/55 L 01/08/23 22:47 97 01/08/23 22:47 77 01/08/23 22:42 98 01/08/23 22:42 96 H 01/08/23 22:37 98 01/08/23 22:37 79 01/08/23 22:30 18 01/08/23 22:30 18 01/08/23 22:35 78 01/08/23 22:35 100/62 01/08/23 22:32 98 01/08/23 22:32 79 01/08/23 22:27 97 01/08/23 22:27 78 01/08/23 22:00 20 01/08/23 22:00 20 01/08/23 22:22 97 01/08/23 22:22 75 01/08/23 22:21 78 01/08/23 22:21 99/60 L 01/08/23 22:17 98 01/08/23 22:17 80 01/08/23 22:12 97 01/08/23 22:12 78 01/08/23 22:07 99 01/08/23 22:07 80 01/08/23 22:04 75 01/08/23 22:04 94/53 L 01/08/23 22:02 97 01/08/23 22:02 80 01/08/23 21:57 98 01/08/23 21:57 82 01/08/23 21:30 18 01/08/23 21:30 18 01/08/23 21:52 98 01/08/23 21:52 77 01/08/23 21:35 99.1 F 01/08/23 21:50 75 01/08/23 21:50 97/54 L 01/08/23 21:47 99 01/08/23 21:47 78 01/08/23 21:42 97 01/08/23 21:42 77 01/08/23 21:37 99 01/08/23 21:37 96 H 01/08/23 21:34 97 H 01/08/23 21:34 110/75 01/08/23 21:32 98 01/08/23 21:32 89 01/08/23 21:30 94 01/08/23 21:30 97 H 01/08/23 21:27 91 01/08/23 21:27 86 01/08/23 21:25 92 01/08/23 21:25 91 H 01/08/23 21:22 98 01/08/23 21:22 85 01/08/23 21:20 85 01/08/23 21:20 113/77 01/08/23 21:17 99 01/08/23 21:17 90 01/08/23 21:12 99 01/08/23 21:12 87 01/08/23 21:07 100 01/08/23 21:07 83 01/08/23 21:00 18 01/08/23 21:00 18 01/08/23 21:05 95 H 01/08/23 21:05 119/77 01/08/23 21:02 95 01/08/23 21:02 98 H 01/08/23 20:57 100 01/08/23 20:57 90 Coding Level of Care Code None Diagnoses SROM (spontaneous rupture of membranes)
[2023-01-09] MEDS ORDERED: ACETAMINOPHEN 500 MG TAB ONE (10:17)
--- NOTE | 2023-01-09 10:34 | Labor Progress Brief Note ---
Date of Service January 09, 2023 Subjective pt and requesting discussion as baby slightly more tachy Assessment & Plan (1) SROM (spontaneous rupture of membranes): Plan: 27 yo G1 at 40 1/7 [facility] admitted w/ prom VSS Fetus cat 2 but still good variability Labor - IUPC in place, exam seems unchanged. Pt and had noted that baseline was slowly going up and wondering about CS. Pt has not had a temp but IV bolus was given and tachy seems to be improving a bit. They are wondering if should move to CS. Discussed at this time does not have dx of chorio but may be brewing with baseline slowly increasing though reassuring has returned a bit to normal. Again discussed her cervix and no change at this point but not much time has passed, there is no way to predict whether she will get to 10cm or if will be able to push baby out as well however prolonged labor curve is concerning as well as her exam. I did discuss tylenol to see if this would help with baseline and was planning on giving if fluids did not improve. They feel that if she is not progressing at next check given it sounds like minimal change from overnight to now, they would like to proceed with CS. Discussed indications, risks, benefits, alternatives with risks including infection, bleeding, injury to adjacent structures (bowel, bladder, ureters, blood vessels, nerves, baby), possible need for blood transfusion and/or life saving hysterectomy, VTE. They verbalized understanding. Admission and Anticipated Discharge Date Admission Date: January 08, 2023 Physical Exam Genitourinary: OB Exam Monitor Tracing: + external FHT monitor used, + intra- uterine pressure catheter used and + category II (baseline was 165-170 a bit ago, coming back to 160s. mod tamiko, +acc, -dec) Results & Data Vital Signs (Past 12 Hours) Vital Signs Temp Pulse Resp BP Pulse Ox 01/09/23 10:22 77 97 01/09/23 10:05 18 01/09/23 10:05 98.2 F 18 01/09/23 10:17 80 98 01/09/23 10:12 74 99 01/09/23 10:07 81 98 01/09/23 10:04 75 109/71 01/09/23 10:02 75 99 01/09/23 09:57 74 100 01/09/23 09:52 75 100 01/09/23 09:50 74 107/67 01/09/23 09:47 72 99 01/09/23 09:42 74 99 01/09/23 09:35 20 01/09/23 09:35 99.3 F 20 01/09/23 09:37 81 99 01/09/23 09:34 76 113/60 01/09/23 09:32 72 100 01/09/23 09:27 76 100 01/09/23 09:22 74 99 01/09/23 09:19 72 108/63 01/09/23 09:17 75 98 01/09/23 09:10 16 01/09/23 09:10 99.0 F 16 01/09/23 09:12 75 98 01/09/23 09:07 75 98 01/09/23 09:04 74 92/55 L 01/09/23 09:02 74 99 01/09/23 08:57 74 99 01/09/23 08:52 87 98 01/09/23 08:49 78 112/68 01/09/23 08:47 83 100 01/09/23 08:42 83 98 01/09/23 08:37 82 97 01/09/23 08:34 69 110/66 01/09/23 08:32 76 98 01/09/23 08:27 77 98 01/09/23 08:22 86 98 01/09/23 08:19 72 110/67 01/09/23 08:17 75 97 01/09/23 08:12 99.1 F 77 18 98 01/09/23 08:07 78 99 01/09/23 08:04 78 115/71 01/09/23 08:02 78 99 01/09/23 07:57 78 97 01/09/23 07:52 77 98 01/09/23 07:50 77 112/69 01/09/23 07:47 79 99 01/09/23 07:42 85 99 01/09/23 07:37 79 99 01/09/23 07:34 79 112/70 01/09/23 07:32 80 100 01/09/23 07:27 80 100 01/09/23 07:22 83 100 01/09/23 07:19 82 102/56 L 01/09/23 07:17 90 100 01/09/23 07:12 77 100 01/09/23 07:07 82 99 01/09/23 07:00 18 01/09/23 07:00 18 01/09/23 07:05 98.2 F 81 16 109/62 01/09/23 07:02 83 100 01/09/23 06:57 84 100 01/09/23 06:52 80 100 01/09/23 06:50 80 107/63 01/09/23 06:47 79 100 01/09/23 06:30 20 01/09/23 06:30 20 01/09/23 06:42 83 100 01/09/23 06:37 87 99 01/09/23 06:34 77 114/68 01/09/23 06:32 82 97 01/09/23 06:27 89 96 01/09/23 06:22 90 97 01/09/23 06:20 95 H 109/66 01/09/23 06:17 96 H 99 01/09/23 06:00 18 01/09/23 06:00 18 01/09/23 06:12 91 H 98 01/09/23 06:07 90 96 01/09/23 06:06 91 H 99/55 L 01/09/23 06:02 88 97 01/09/23 05:57 85 98 01/09/23 05:52 82 98 01/09/23 05:50 99.0 F 01/09/23 05:49 80 98/56 L 01/09/23 05:47 97 H 99 01/09/23 05:42 108 H 98 01/09/23 05:30 18 01/09/23 05:30 18 01/09/23 05:37 92 H 96 01/09/23 05:34 86 107/65 01/09/23 05:32 86 97 01/09/23 05:27 88 96 01/09/23 05:22 90 97 01/09/23 05:19 83 109/68 01/09/23 05:17 90 97 01/09/23 05:12 89 96 01/09/23 05:07 88 96 01/09/23 05:04 82 112/72 01/09/23 05:02 84 98 01/09/23 04:57 84 98 01/09/23 04:52 84 97 01/09/23 04:49 82 107/70 01/09/23 04:47 80 97 01/09/23 04:42 80 97 01/09/23 04:37 84 98 01/09/23 04:34 83 110/71 01/09/23 04:32 78 99 01/09/23 04:27 79 98 01/09/23 04:22 77 100 01/09/23 04:19 75 106/63 01/09/23 04:17 80 99 01/09/23 04:12 78 98 01/09/23 04:07 83 98 01/09/23 04:04 76 107/63 01/09/23 04:02 77 98 01/09/23 04:00 18 01/09/23 04:00 18 01/09/23 03:57 93 H 98 01/09/23 03:52 92 H 100 01/09/23 03:49 90 115/71 01/09/23 03:47 98.4 F 79 98 01/09/23 03:42 83 98 01/09/23 03:37 79 98 01/09/23 03:34 81 112/68 01/09/23 03:30 20 01/09/23 03:30 20 01/09/23 03:32 81 99 01/09/23 03:27 78 100 01/09/23 03:22 84 100 01/09/23 03:19 73 100/57 L 01/09/23 03:17 75 99 01/09/23 03:12 76 97 01/09/23 03:07 76 99 01/09/23 03:05 78 103/61 01/09/23 03:00 18 01/09/23 03:00 18 01/09/23 03:02 79 100 01/09/23 02:57 88 100 01/09/23 02:52 79 99 01/09/23 02:49 78 98/60 L 01/09/23 02:47 81 97 01/09/23 02:42 80 97 01/09/23 02:37 76 98 01/09/23 02:35 86 105/64 01/09/23 02:32 83 97 01/09/23 02:30 18 01/09/23 02:30 18 01/09/23 02:27 82 98 01/09/23 02:22 83 98 01/09/23 02:19 90 123/72 01/09/23 02:17 87 98 01/09/23 02:12 87 98 01/09/23 02:07 92 H 99 01/09/23 02:04 89 113/75 01/09/23 02:00 20 01/09/23 02:00 20 01/09/23 02:02 96 H 99 01/09/23 01:57 103 H 97 01/09/23 01:52 87 97 01/09/23 01:49 88 108/75 01/09/23 01:47 93 H 99 01/09/23 01:42 86 98 01/09/23 01:37 79 97 01/09/23 01:34 75 100/60 01/09/23 01:32 83 99 01/09/23 01:21 99.0 F 01/09/23 01:30 18 01/09/23 01:30 18 01/09/23 01:27 88 96 01/09/23 01:22 89 100 01/09/23 01:17 82 98 01/09/23 01:12 80 98 01/09/23 01:00 18 01/09/23 01:00 18 01/09/23 01:07 98 H 99 01/09/23 01:05 91 H 120/71 01/09/23 01:02 76 98 01/09/23 00:57 76 98 01/09/23 00:52 79 97 01/09/23 00:49 78 107/66 01/09/23 00:47 80 98 01/09/23 00:42 83 99 01/09/23 00:30 20 01/09/23 00:30 20 01/09/23 00:37 81 100 01/09/23 00:34 77 108/59 L 01/09/23 00:32 77 99 01/09/23 00:27 78 98 01/09/23 00:00 20 01/09/23 00:00 20 01/09/23 00:22 78 98 01/09/23 00:21 86 117/63 01/09/23 00:17 110 H 99 01/09/23 00:12 81 96 01/09/23 00:07 79 96 01/09/23 00:05 80 108/71 01/09/23 00:02 77 96 01/08/23 23:57 98 01/08/23 23:57 79 06/09/23 23:52 97 01/08/23 23:52 81 01/08/23 23:30 18 01/08/23 23:30 18 01/08/23 23:49 77 01/08/23 23:49 113/71 01/08/23 23:47 97 01/08/23 23:47 85 01/08/23 23:42 97 01/08/23 23:42 80 01/08/23 23:37 99 01/08/23 23:37 81 01/08/23 23:35 83 01/08/23 23:35 109/71 01/08/23 23:32 98 01/08/23 23:32 82 01/08/23 23:27 98 01/08/23 23:27 82 01/08/23 23:22 98 01/08/23 23:22 75 01/08/23 23:10 98.2 F 01/08/23 23:19 79 01/08/23 23:19 113/68 01/08/23 23:17 98 01/08/23 23:17 79 01/08/23 23:12 100 01/08/23 23:12 82 01/08/23 23:07 96 01/08/23 23:07 106 H 01/08/23 23:04 78 01/08/23 23:04 107/60 01/08/23 23:02 98 01/08/23 23:02 79 01/08/23 23:00 18 01/08/23 23:00 18 01/08/23 22:57 98 01/08/23 22:57 75 01/08/23 22:52 98 01/08/23 22:52 77 01/08/23 22:49 74 01/08/23 22:49 108/55 L 01/08/23 22:47 97 01/08/23 22:47 77 01/08/23 22:42 98 01/08/23 22:42 96 H 01/08/23 22:37 98 01/08/23 22:37 79 01/08/23 22:30 18 01/08/23 22:30 18 01/08/23 22:35 78 01/08/23 22:35 100/62 01/08/23 22:32 98 01/08/23 22:32 79 01/08/23 22:27 97 01/08/23 22:27 78 Coding Level of Care Code None Diagnoses SROM (spontaneous rupture of membranes)
[2023-01-09] MEDS ORDERED: AZITHROMYCIN 500 MG in DEXTROSE 5% 250 ML IV STA (10:45)
--- NOTE | 2023-01-09 10:58 | Communication Note ---
Date of Service: January 09, 2023 Called by nursing that pt desired to proceed with CS after further discussion. Presented to bedside and they stated they did not want to continue due to lack of progress and the tachy seen earlier. I think this is reasonable as well. Discussed indications, risks, benefits, alternatives with risks including infection, bleeding, injury to adjacent structures (bowel, bladder, ureters, blood vessels, nerves, baby), possible need for blood transfusion and/or life saving hysterectomy, VTE. Consent reviewed in detail w/ pt and signed after all questions answered to her satisfaction. Plan for ancef and monty, T&S. Anesthesia and peds made aware. Pitocin d/c'd
[2023-01-09] MEDS ORDERED: ceFAZolin 2000MG 2,000 MG/15 ML SYR IV SCH (11:00)
[2023-01-09] MEDS ORDERED: LIDOCAINE 2%/EPINEPHRINE 1:200,000 20 ML PF ONE (11:41)
[2023-01-09] MEDS ORDERED: MoRPHine SULFATE PF 1 MG/ML 10 ML AMP/VIAL ONE (11:41)
[2023-01-09] MEDS ORDERED: OXYTOCIN 10 UNITS/ML VIAL ONE (11:42)
--- NOTE | 2023-01-09 11:49 | Anesthesiology Consultation ---
Date of Service January 09, 2023 Assessment & Plan Chart Review Chart Review: Acceptable Risk for Surgery Consults Requested none ASA [id number] Proposed Anesthesia Anesthesia Type: MAC Epidural Risk / Benefits Reviewed With: PT / POA / Parent / Guardian, Accepts Plan and Informed Consent Obtained History Surgery Operation Date: 01/09/23 11:45 Proposed Procedures p Section in LD(Bilateral) - Ann Torres MD Height/Weight Height: 5 ft 2 in Weight: 75.843 kg Allergies Allergy/AdvReac Type Severity Reaction Status Date / Time No Known Allergies Allergy Verified 01/01/23 13:47 Medications Home Medications Medication Instructions Recorded Confirmed Last Taken prenat.vits,ector,[id number] 1 tab PO DAILY 05/29/22 01/08/23 01/07/23 08:00 ferrous sulfate See Rx Instructions .Route .COMPLEX 11/13/22 01/08/23 01/06/23 08:00 Active Medications Generic Name Dose Route Start Last Admin Trade Name Freq PRN Reason Stop Dose Admin Lactated Ringer's 1,000 mls @ 125 mls/hr 01/08/23 07:34 01/09/23 10:10 Lr IV 01/10/23 07:33 125 mls/hr .Q8H PRN Infusion L&D Protocol Protocol Oxytocin 30 units in 500 mls @ 0 mls/hr 01/08/23 07:39 01/09/23 10:50 Pitocin IV 01/10/23 07:38 0 units/hr .Q0M PRN 0 mls/hr Labor Induction/Augmentation Titration Protocol 0 UNITS/HR Azithromycin 500 mg/ Dextrose 255 mls @ 127.5 mls/hr 01/09/23 10:45 01/09/23 11:14 IV 01/09/23 12:44 127.5 mls/hr NOW STA Administration Ropivacaine 100 ml 01/08/23 14:26 01/09/23 09:03 Fentanyl 2mcg/Ml Ropivacaine 1.25mg/Ml 100 Ml Bag EPI 01/09/23 14:25 100 ml PRN PRN Administration Pain R/T Labor Protocol NPO Date Last Intake of Fluids: 01/09/23 Time Last Intake of Fluids: 10:00 Date Last Intake of Solids: 01/07/23 Time Last Intake of Solids: 22:00 Past Medical History Medical History History of chicken pox Exercise / Class Metabolic Activity II 4-5 Yardwork/Stairs/Walk up hill Past Family History Family History Denies family history of Ovarian cancer Breast cancer Colorectal cancer Past Surgical History Surgical History No history of previous surgery Past Anesthesia History No Hx of Anesthesia Complications and No Family Hx of Anesthesia Complications History of PONV No Hx of PONV and No Hx of Motion Sickness Social History Smoking Status: Never smoker Do You Dip or Chew Tobacco: No Hx Alcohol Use: No Hx Substance Use: No Physical Exam Vital Signs Last Vital Signs Temp 98.2 F 01/09/23 10:05 Pulse 93 H 01/09/23 11:42 Resp 18 01/09/23 10:05 BP 100/61 01/09/23 11:34 Pulse Ox 96 01/09/23 11:42 ENMT Mouth: no dentition abnormality Thyromental Distance: > or= 3.5 Finger Breadths Mallampati Class: II Neck normal visual inspection Respiratory normal respiratory effort Auscultation: lungs clear to auscultation bilaterally Cardiovascular Rate/Rhythm: regular rate and regular rhythm Testing Laboratory Results 01/08/23 08:01 Blood Type O Positive 01/08/23 08:01 Antibody Screen NEGATIVE 01/08/23 08:01
--- NOTE | 2023-01-09 13:14 | Operative Report ---
[facility] Post Operative Report Pre & Post Diagnosis Operation Date: 01/09/23 11:45 Pre-Op Diagnosis: Single Intrauterine at 40 1/7 weeks;PROM,Failure to Progress; Tachycardia Post-Op Diagnosis: Same; Delivery of a live male child at 1219 I identified the patient and participated in the time-out.: Yes Procedure Operation Date: 01/09/23 11:45 Actual Procedures p Primary Low Transverse Section in LD(Bilateral) - Ann Torres MD Surgeon Ann Torres MD [employer] PINEDA Monae Estimated Blood Loss 500 Findings Consistent with Post-Op Diagnosis Normal appearing uterus, bilateral fallopian tubes and ovaries. Viable male infant weighing 8lbs 3.9oz with APGARs of 9 and 9 at 1 and 5 minutes respectively. Thick meconium noted after delivery of baby. See catheter was pink-red tinged prior to beginning CS, did clear up at conclusion of case. tachycardia was noted however no maternal temperature was ever noted so not formally diagnosed with chorioamnionitis Fluids 1500cc crystalloid, UOP 400cc by see catheter Specimens Cord blood, placenta Drains See Anesthesia Type L&D Only Epidural Exists Complications none Disposition Accompanied Patient To Recovery: Yes Disposition: L&D Indications 27 yo G1 at 40 1/7 wga presented one day ago with premature rupture of membranes and found to be 0.5cm. She was started on pitocin and received an epidural for pain control. She was checked around 6pm and found to be 3cm, forebag ruptured at that time. She continued to make slow progress to 5-6cm. On recheck this morning was still the same but anterior cervix was noted to have swelled. She was counseled regarding this but given progress, induction was continued. IUPC was placed to help titrate pitocin however baseline began increasing and was slightly tachycardic. Cervix continued to remain unchanged. She was counseled regarding continued induction vs CS and opted for CS. Description of Procedure The patient was taken to the operating room after consents were ensured. The patient was properly identified. Epidural anesthesia was bolused without difficulty. The patient was placed in a dorsal supine position with left lateral tilt, then prepped and draped in normal sterile fashion. Surgical time out was performed. Antibiotics were given for prophylaxis. Anesthesia was tested to ensure adequate surgical levels. Pfannenstiel skin incision was performed and carried down to the underlying fascia with a knife. The fascia was then nicked in the midline and extended laterally with pickmarti and Dalton scissors. Superior portion of the fascia was grasped with Kochers x2 and elevated off the underlying rectus muscles using blunt dissection. Inferior portion of the fascia was then grasped with Diogenes clamps x2 and also elevated off the underlying muscles with blunt dissection. Midline was identified. The peritoneum was then entered and extended to provide adequate room for delivery of baby. A hand was inserted into the abdomen, uterus was noted to be clear of adhesions. Bladder blade was inserted, bladder flap was created in the usual fashion. A low transverse uterine incision was made in the uterus and extended bluntly in a superior to inferior fashion. Thick meconium was noted at time of entry. head was grasped and elevated through the hysterotomy in an atraumatic fashion. The baby delivered in LELA position, nuchal cord x 1 was reduced. Remainder of the body delivered without incident. Nose and mouth were bulb suctioned on the surgical field. The cord was double clamped and cut, baby was handed off to awaiting pediatrics staff. Cord segment and blood w ere obtained. Placenta was then expressed from the uterus. The uterus was exteriorized. Several passes were made inside the uterus to remove the remaining membranes. Attention was then turned to the hysterotomy, which was then closed with a running locked suture of 0 Vicryl on a CTX needle. An imbricating layer was then performed using 0-Monocryl. There was noted to be good hemostasis. The pos terior cul-de-sac was then inspected and cleaned of clot and debris. The hysterotomy was again inspected and noted to be hemostatic. The uterus was returned to the abdomen. The right and left pericolic gutters were cleaned of all clot and debris. An area of ooze was noted however stopped with pressure. The hysterotomy was again noted to be hemostatic. Sujatha was applied to the hysterotomy. Space of Retzius was noted to be hemostatic. The fascia was then closed with a running suture of 0 Vicryl on a CT1 needle. Subcutaneous tissue was copiously irrigated and noted to be hemostatic. Subcutaneous tissue was re- approximated using 2-0 plain gut. The skin was then closed with a running suture of 3-0 Monocryl in a subcuticular fashion. At termination of the procedure, fundal pressure was applied and a moderate amount of lochia was expressed. Pressure dressing was applied to the patient. She tolerated the procedure well. All sponge, needle, instrument counts were correct x 2. I attest to the content of the Intraoperative Record and any orders documented therein. Any exceptions are noted below. OB Procedure Charges 05957
[2023-01-09] MEDS ORDERED: DIPHTHERIA/TETANUS/PERTUSSIS Vaccine (Tdap, Age 7+yrs) 0.5mL SYR/VL IM ONE (13:40)
[2023-01-09] MEDS ORDERED: OXYTOCIN 20 UNITS in LACTATED RINGER'S 1,000 ML IV SCH (13:40)
[2023-01-09] MEDS ORDERED: PROMETHAZINE HCL 25 MG in SODIUM CHLORIDE 0.9% 50 ML IV PRN (13:40)
[2023-01-09] MEDS ORDERED: diphenhydrAMINE Capsule 25 MG CAP PO PRN (13:40)
[2023-01-09] MEDS ORDERED: BENZOCAINE 20% AER SPR 82.5 GM CAN EXT PRN (13:40)
[2023-01-09] MEDS ORDERED: diphenhydrAMINE 50 MG/ML VIAL IV PRN ×2 (13:40→21:22)
[2023-01-09] MEDS ORDERED: KETOROLAC 30 MG/ML VIAL IV PRN ×2 (13:40→21:22)
[2023-01-09] MEDS ORDERED: HYDROCORTISONE ACETATE 25 MG SUPP PR PRN (13:40)
[2023-01-09] MEDS ORDERED: ONDANSETRON INJ 2 MG/ML 2 ML VIAL IV PRN ×2 (13:40→21:22)
[2023-01-09] MEDS ORDERED: LACTATED RINGER'S 1,000 ML IV SCH (13:40)
[2023-01-09] MEDS ORDERED: MAGNESIUM HYDROXIDE SUSP 30 ML UDC PO PRN (13:40)
[2023-01-09] MEDS ORDERED: SENNA 8.6 MG TAB PO PRN (13:40)
--- NOTE | 2023-01-09 14:07 | Anesthesiology Progress Note ---
Date of Service January 09, 2023 Anesthesia Post Procedure Vital Signs Vital Signs: Temp Pulse Resp BP Pulse Ox 01/08/23 19:06 98.1 F 18 01/09/23 14:03 90 98 01/09/23 13:58 94 H 97 01/09/23 13:55 100 H 108/58 L 01/09/23 13:53 105 H 98 01/09/23 13:48 98 01/09/23 13:48 98 H 01/09/23 13:48 100 H 102/57 L 01/09/23 13:43 98 H 98 01/09/23 13:38 103 H 98 01/09/23 13:33 104 H 97 01/09/23 13:29 109 H 112/62 01/09/23 13:28 109 H 98 01/09/23 13:24 108 H 89 L 01/09/23 13:23 111 H 100 01/09/23 13:18 101 H 100 01/09/23 13:16 93 H 96/52 L 01/09/23 13:13 94 H 99 01/09/23 13:08 94 H 98 01/09/23 13:03 93 H 96/52 L 98 01/09/23 11:52 87 98 01/09/23 11:49 76 110/63 01/09/23 11:47 87 98 01/09/23 11:42 93 H 96 01/09/23 11:37 88 96 01/09/23 11:34 90 100/61 01/09/23 11:32 91 H 96 01/09/23 11:27 90 97 01/09/23 11:22 95 H 96 01/09/23 11:19 90 102/60 01/09/23 11:18 106 H 94 01/09/23 11:17 104 H 95 01/09/23 11:12 113 H 95 01/09/23 11:07 119 H 96 01/09/23 11:02 74 97 01/09/23 10:57 81 96 01/09/23 10:52 80 98 01/09/23 10:50 74 108/68 01/09/23 10:47 74 97 01/09/23 10:42 73 99 01/09/23 10:37 73 99 01/09/23 10:36 83 105/58 L 01/09/23 10:32 70 99 01/09/23 10:27 77 98 01/09/23 10:22 77 97 01/09/23 10:05 18 01/09/23 10:05 98.2 F 18 01/09/23 10:17 80 98 01/09/23 10:12 74 99 01/09/23 10:07 81 98 01/09/23 10:04 75 109/71 01/09/23 10:02 75 99 01/09/23 09:57 74 100 01/09/23 09:52 75 100 01/09/23 09:50 74 107/67 01/09/23 09:47 72 99 01/09/23 09:42 74 99 01/09/23 09:35 20 01/09/23 09:35 99.3 F 20 01/09/23 09:37 81 99 01/09/23 09:34 76 113/60 01/09/23 09:32 72 100 01/09/23 09:27 76 100 01/09/23 09:22 74 99 01/09/23 09:19 72 108/63 01/09/23 09:17 75 98 01/09/23 09:10 16 01/09/23 09:10 99.0 F 16 01/09/23 09:12 75 98 01/09/23 09:07 75 98 01/09/23 09:04 74 92/55 L 01/09/23 09:02 74 99 01/09/23 08:57 74 99 01/09/23 08:52 87 98 01/09/23 08:49 78 112/68 01/09/23 08:47 83 100 01/09/23 08:42 83 98 01/09/23 08:37 82 97 01/09/23 08:34 69 110/66 01/09/23 08:32 76 98 01/09/23 08:27 77 98 01/09/23 08:22 86 98 01/09/23 08:19 72 110/67 01/09/23 08:17 75 97 01/09/23 08:12 99.1 F 77 18 98 01/09/23 08:07 78 99 01/09/23 08:04 78 115/71 01/09/23 08:02 78 99 01/09/23 07:57 78 97 01/09/23 07:52 77 98 01/09/23 07:50 77 112/69 01/09/23 07:47 79 99 01/09/23 07:42 85 99 01/09/23 07:37 79 99 01/09/23 07:34 79 112/70 01/09/23 07:32 80 100 01/09/23 07:27 80 100 01/09/23 07:22 83 100 01/09/23 07:19 82 102/56 L 01/09/23 07:17 90 100 01/09/23 07:12 77 100 01/09/23 07:07 82 99 01/09/23 07:00 18 01/09/23 07:00 18 01/09/23 07:05 98.2 F 81 16 109/62 01/09/23 07:02 83 100 01/09/23 06:57 84 100 01/09/23 06:52 80 100 01/09/23 06:50 80 107/63 01/09/23 06:47 79 100 01/09/23 06:30 20 01/09/23 06:30 20 01/09/23 06:42 83 100 01/09/23 06:37 87 99 01/09/23 06:34 77 114/68 01/09/23 06:32 82 97 01/09/23 06:27 89 96 01/09/23 06:22 90 97 01/09/23 06:20 95 H 109/66 01/09/23 06:17 96 H 99 01/09/23 06:00 18 01/09/23 06:00 18 01/09/23 06:12 91 H 98 01/09/23 06:07 90 96 01/09/23 06:06 91 H 99/55 L 01/09/23 06:02 88 97 01/09/23 05:57 85 98 01/09/23 05:52 82 98 01/09/23 05:50 99.0 F 01/09/23 05:49 80 98/56 L 01/09/23 05:47 97 H 99 01/09/23 05:42 108 H 98 01/09/23 05:30 18 01/09/23 05:30 18 01/09/23 05:37 92 H 96 01/09/23 05:34 86 107/65 01/09/23 05:32 86 97 01/09/23 05:27 88 96 01/09/23 05:22 90 97 01/09/23 05:19 83 109/68 01/09/23 05:17 90 97 01/09/23 05:12 89 96 01/09/23 05:07 88 96 01/09/23 05:04 82 112/72 01/09/23 05:02 84 98 01/09/23 04:57 84 98 01/09/23 04:52 84 97 01/09/23 04:49 82 107/70 01/09/23 04:47 80 97 01/09/23 04:42 80 97 01/09/23 04:37 84 98 01/09/23 04:34 83 110/71 01/09/23 04:32 78 99 01/09/23 04:27 79 98 01/09/23 04:22 77 100 01/09/23 04:19 75 106/63 01/09/23 04:17 80 99 01/09/23 04:12 78 98 01/09/23 04:07 83 98 01/09/23 04:04 76 107/63 01/09/23 04:02 77 98 01/09/23 04:00 18 01/09/23 04:00 18 01/09/23 03:57 93 H 98 01/09/23 03:52 92 H 100 01/09/23 03:49 90 115/71 01/09/23 03:47 98.4 F 79 98 01/09/23 03:42 83 98 01/09/23 03:37 79 98 01/09/23 03:34 81 112/68 01/09/23 03:30 20 01/09/23 03:30 20 01/09/23 03:32 81 99 01/09/23 03:27 78 100 01/09/23 03:22 84 100 01/09/23 03:19 73 100/57 L 01/09/23 03:17 75 99 01/09/23 03:12 76 97 01/09/23 03:07 76 99 01/09/23 03:05 78 103/61 01/09/23 03:00 18 01/09/23 03:00 18 01/09/23 03:02 79 100 01/09/23 02:57 88 100 01/09/23 02:52 79 99 01/09/23 02:49 78 98/60 L 01/09/23 02:47 81 97 01/09/23 02:42 80 97 01/09/23 02:37 76 98 01/09/23 02:35 86 105/64 01/09/23 02:32 83 97 01/09/23 02:30 18 01/09/23 02:30 18 01/09/23 02:27 82 98 01/09/23 02:22 83 98 01/09/23 02:19 90 123/72 01/09/23 02:17 87 98 01/09/23 02:12 87 98 01/09/23 02:07 92 H 99 01/09/23 02:04 89 113/75 01/09/23 02:00 20 01/09/23 02:00 20 01/09/23 02:02 96 H 99 01/09/23 01:57 103 H 97 01/09/23 01:52 87 97 01/09/23 01:49 88 108/75 01/09/23 01:47 93 H 99 01/09/23 01:42 86 98 01/09/23 01:37 79 97 01/09/23 01:34 75 100/60 01/09/23 01:32 83 99 01/09/23 01:21 99.0 F 01/09/23 01:30 18 01/09/23 01:30 18 01/09/23 01:27 88 96 01/09/23 01:22 89 100 01/09/23 01:17 82 98 01/09/23 01:12 80 98 01/09/23 01:00 18 01/09/23 01:00 18 01/09/23 01:07 98 H 99 01/09/23 01:05 91 H 120/71 01/09/23 01:02 76 98 01/09/23 00:57 76 98 01/09/23 00:52 79 97 01/09/23 00:49 78 107/66 01/09/23 00:47 80 98 01/09/23 00:42 83 99 01/09/23 00:30 20 01/09/23 00:30 20 01/09/23 00:37 81 100 01/09/23 00:34 77 108/59 L 01/09/23 00:32 77 99 01/09/23 00:27 78 98 01/09/23 00:00 20 01/09/23 00:00 20 01/09/23 00:22 78 98 01/09/23 00:21 86 117/63 01/09/23 00:17 110 H 99 01/09/23 00:12 81 96 01/09/23 00:07 79 96 01/09/23 00:05 80 108/71 01/09/23 00:02 77 96 01/08/23 23:57 98 01/08/23 23:57 79 01/08/23 23:52 97 01/08/23 23:52 81 01/08/23 23:30 18 01/08/23 23:30 18 01/08/23 23:49 77 01/08/23 23:49 113/71 01/08/23 23:47 97 01/08/23 23:47 85 01/08/23 23:42 97 01/08/23 23:42 80 01/08/23 23:37 99 01/08/23 23:37 81 01/08/23 23:35 83 01/08/23 23:35 109/71 01/08/23 23:32 98 01/08/23 23:32 82 01/08/23 23:27 98 01/08/23 23:27 82 01/08/23 23:22 98 01/08/23 23:22 75 01/08/23 23:10 98.2 F 01/08/23 23:19 79 01/08/23 23:19 113/68 01/08/23 23:17 98 01/08/23 23:17 79 01/08/23 23:12 100 01/08/23 23:12 82 01/08/23 23:07 96 01/08/23 23:07 106 H 01/08/23 23:04 78 01/08/23 23:04 107/60 01/08/23 23:02 98 01/08/23 23:02 79 01/08/23 23:00 18 01/08/23 23:00 18 01/08/23 22:57 98 01/08/23 22:57 75 01/08/23 22:52 98 01/08/23 22:52 77 01/08/23 22:49 74 01/08/23 22:49 108/55 L 01/08/23 22:47 97 01/08/23 22:47 77 01/08/23 22:42 98 01/08/23 22:42 96 H 01/08/23 22:37 98 01/08/23 22:37 79 01/08/23 22:30 18 01/08/23 22:30 18 01/08/23 22:35 78 01/08/23 22:35 100/62 01/08/23 22:32 98 01/08/23 22:32 79 01/08/23 22:27 97 01/08/23 22:27 78 01/08/23 22:00 20 01/08/23 22:00 20 01/08/23 22:22 97 01/08/23 22:22 75 01/08/23 22:21 78 01/08/23 22:21 99/60 L 01/08/23 22:17 98 01/08/23 22:17 80 01/08/23 22:12 97 01/08/23 22:12 78 01/08/23 22:07 99 01/08/23 22:07 80 01/08/23 22:04 75 01/08/23 22:04 94/53 L 01/08/23 22:02 97 01/08/23 22:02 80 01/08/23 21:57 98 01/08/23 21:57 82 01/08/23 21:30 18 01/08/23 21:30 18 01/08/23 21:52 98 01/08/23 21:52 77 01/08/23 21:35 99.1 F 01/08/23 21:50 75 01/08/23 21:50 97/54 L 01/08/23 21:47 99 01/08/23 21:47 78 01/08/23 21:42 97 01/08/23 21:42 77 01/08/23 21:37 99 01/08/23 21:37 96 H 01/08/23 21:34 97 H 01/08/23 21:34 110/75 01/08/23 21:32 98 01/08/23 21:32 89 01/08/23 21:30 94 01/08/23 21:30 97 H 01/08/23 21:27 91 01/08/23 21:27 86 01/08/23 21:25 92 01/08/23 21:25 91 H 01/08/23 21:22 98 01/08/23 21:22 85 01/08/23 21:20 85 01/08/23 21:20 113/77 01/08/23 21:17 99 01/08/23 21:17 90 01/08/23 21:12 99 01/08/23 21:12 87 01/08/23 21:07 100 01/08/23 21:07 83 01/08/23 21:00 18 01/08/23 21:00 18 01/08/23 21:05 95 H 01/08/23 21:05 119/77 01/08/23 21:02 95 01/08/23 21:02 98 H 01/08/23 20:57 100 01/08/23 20:57 90 01/08/23 20:52 97 01/08/23 20:52 86 01/08/23 20:49 82 01/08/23 20:49 113/70 01/08/23 20:47 97 01/08/23 20:47 93 H 01/08/23 20:42 99 01/08/23 20:42 80 01/08/23 20:37 100 01/08/23 20:37 82 01/08/23 20:34 75 01/08/23 20:34 111/66 01/08/23 20:32 100 01/08/23 20:32 89 01/08/23 20:30 20 01/08/23 20:30 20 01/08/23 20:27 100 01/08/23 20:27 79 01/08/23 20:22 100 01/08/23 20:22 90 01/08/23 20:20 90 01/08/23 20:20 87 01/08/23 20:19 82 01/08/23 20:19 111/67 01/08/23 20:17 100 01/08/23 20:17 83 01/08/23 20:12 99 01/08/23 20:12 83 01/08/23 20:00 18 01/08/23 20:00 18 01/08/23 20:07 98 01/08/23 20:07 78 01/08/23 19:30 18 01/08/23 19:30 18 01/08/23 20:05 85 01/08/23 20:05 109/65 01/08/23 20:02 100 01/08/23 20:02 77 01/08/23 19:57 98 01/08/23 19:57 80 01/08/23 19:52 98 01/08/23 19:52 80 01/08/23 19:50 75 01/08/23 19:50 109/68 01/08/23 19:47 98 01/08/23 19:47 76 01/08/23 19:42 96 01/08/23 19:42 79 01/08/23 19:37 96 01/08/23 19:37 78 01/08/23 19:34 78 01/08/23 19:34 97/52 L 01/08/23 19:32 97 01/08/23 19:32 87 01/08/23 19:27 96 01/08/23 19:27 81 01/08/23 19:22 96 01/08/23 19:22 83 01/08/23 19:20 80 01/08/23 19:20 95/55 L 01/08/23 19:17 96 01/08/23 19:17 79 01/08/23 19:12 99 01/08/23 19:12 83 01/08/23 19:07 100 01/08/23 19:07 75 01/08/23 19:05 79 01/08/23 19:05 120/73 01/08/23 19:03 92 01/08/23 19:03 88 01/08/23 19:02 100 01/08/23 19:02 74 01/08/23 18:57 100 01/08/23 18:57 79 01/08/23 18:52 99 01/08/23 18:52 86 01/08/23 18:50 76 01/08/23 18:50 104/68 01/08/23 18:47 99 01/08/23 18:47 76 01/08/23 18:42 100 01/08/23 18:42 80 01/08/23 18:37 100 01/08/23 18:37 77 01/08/23 18:34 82 01/08/23 18:34 110/74 01/08/23 18:32 100 01/08/23 18:32 85 01/08/23 18:27 100 01/08/23 18:27 83 01/08/23 18:22 100 01/08/23 18:22 90 01/08/23 18:19 83 01/08/23 18:19 109/72 01/08/23 18:17 100 01/08/23 18:17 81 01/08/23 18:17 92 01/08/23 18:17 84 01/08/23 18:12 100 01/08/23 18:12 85 01/08/23 18:07 100 01/08/23 18:07 78 01/08/23 18:06 92 01/08/23 18:05 83 01/08/23 18:06 95 H 01/08/23 18:05 112/70 01/08/23 18:02 92 01/08/23 18:02 99 H 01/08/23 17:57 100 01/08/23 17:57 90 01/08/23 17:54 92 01/08/23 17:54 82 01/08/23 17:52 100 01/08/23 17:52 79 01/08/23 17:49 74 01/08/23 17:49 113/66 01/08/23 17:47 99 01/08/23 17:47 84 01/08/23 17:45 92 01/08/23 17:45 81 01/08/23 17:42 94 01/08/23 17:42 72 01/08/23 17:37 99 01/08/23 17:37 75 01/08/23 17:35 80 01/08/23 17:35 90/51 L 01/08/23 17:32 99 01/08/23 17:32 74 01/08/23 17:27 99 01/08/23 17:27 73 01/08/23 17:22 99 01/08/23 17:22 72 01/08/23 17:20 71 01/08/23 17:20 91/51 L 01/08/23 17:17 100 01/08/23 17:17 103 H 01/08/23 17:12 100 01/08/23 17:12 70 01/08/23 17:07 100 01/08/23 17:07 81 01/08/23 17:04 71 01/08/23 17:04 104/66 01/08/23 17:02 100 01/08/23 17:02 79 01/08/23 16:57 99 01/08/23 16:57 79 01/08/23 16:52 100 01/08/23 16:52 78 01/08/23 16:50 76 01/08/23 16:50 104/63 01/08/23 16:47 100 01/08/23 16:47 78 01/08/23 16:36 20 01/08/23 16:36 98.4 F 20 01/08/23 16:42 100 01/08/23 16:42 76 01/08/23 16:37 100 01/08/23 16:37 88 01/08/23 16:36 70 01/08/23 16:36 108/72 01/08/23 16:32 100 01/08/23 16:32 85 01/08/23 16:27 100 01/08/23 16:27 98 H 01/08/23 16:22 100 01/08/23 16:22 79 01/08/23 16:19 81 01/08/23 16:19 117/74 01/08/23 16:17 100 01/08/23 16:17 84 01/08/23 16:15 87 L 01/08/23 16:15 87 01/08/23 16:12 98 01/08/23 16:12 86 01/08/23 15:05 20 01/08/23 15:05 97.9 F 20 01/08/23 16:07 100 01/08/23 16:07 85 01/08/23 16:05 80 01/08/23 16:05 101/68 01/08/23 16:02 96 01/08/23 16:02 85 01/08/23 15:57 100 01/08/23 15:57 73 01/08/23 15:52 100 01/08/23 15:52 95 H 01/08/23 15:49 83 01/08/23 15:49 102/68 01/08/23 15:47 99 01/08/23 15:47 77 01/08/23 15:42 99 01/08/23 15:42 76 01/08/23 15:37 100 01/08/23 15:37 89 01/08/23 15:34 88 01/08/23 15:34 105/69 01/08/23 15:32 100 01/08/23 15:32 79 01/08/23 15:27 100 01/08/23 15:27 74 01/08/23 15:22 100 01/08/23 15:22 85 01/08/23 15:20 82 01/08/23 15:20 107/72 01/08/23 15:17 100 01/08/23 15:17 88 01/08/23 15:12 99 01/08/23 15:12 95 H 01/08/23 15:07 100 01/08/23 15:07 75 01/08/23 15:05 82 01/08/23 15:05 103/67 01/08/23 15:02 100 01/08/23 15:02 73 01/08/23 14:57 100 01/08/23 14:57 85 01/08/23 14:52 100 01/08/23 14:52 75 01/08/23 14:51 74 01/08/23 14:51 108/66 01/08/23 14:47 100 01/08/23 14:47 84 01/08/23 14:42 100 01/08/23 14:42 80 01/08/23 14:37 100 01/08/23 14:37 82 01/08/23 14:34 86 01/08/23 14:34 117/71 01/08/23 14:32 100 01/08/23 14:32 79 01/08/23 14:29 91 01/08/23 14:29 77 01/08/23 14:28 73 01/08/23 14:28 98/55 L 01/08/23 14:27 100 01/08/23 14:27 77 01/08/23 14:23 71 01/08/23 14:23 108/63 01/08/23 14:22 100 01/08/23 14:22 79 01/08/23 14:19 78 01/08/23 14:19 102/57 L 01/08/23 14:17 100 01/08/23 14:17 77 01/08/23 14:12 99 01/08/23 14:12 79 01/08/23 14:12 75 01/08/23 14:12 101/65 01/08/23 14:10 69 01/08/23 14:10 102/66 01/08/23 14:07 99 01/08/23 14:07 73 01/08/23 14:08 76 01/08/23 14:08 103/66 Pain Intensity Back: Pain Intensity: 0 Transfer of Care Handoff Completed per policy Notes Mental Status: alert / awake / arousable and participated in evaluation Patient Amnestic to Procedure: Yes Nausea / Vomiting: adequately controlled Pain: adequately controlled Airway Patency, RR, SpO2: stable & adequate BP & HR: stable & adequate Hydration State: stable & adequate Neuraxial Anesthesia: was administered and sensory block is resolving Anesthetic Complications: no major complications apparent and Pt Satisfied with anesthetic care
--- NOTE | 2023-01-09 14:07 | Anesthesia Procedure Note ---
Date of Service January 09, 2023 Anesthesia Post Epidural Note Vital Signs Vital Signs: Temp Pulse Resp BP Pulse Ox 98.2 F 90 18 105/59 L 98 01/09/23 10:05 01/09/23 14:05 01/09/23 10:05 01/09/23 14:05 01/09/23 14:03 Pain Intensity Back: Pain Intensity: 0 Notes Mental Status: alert / awake / arousable and participated in evaluation Nausea / Vomiting: adequately controlled Pain: adequately controlled Airway Patency, RR, SpO2: stable & adequate BP & HR: stable & adequate Hydration State: stable & adequate Neuraxial Anesthesia: was administered and sensory block is resolving Anesthetic Complications: no major complications apparent and Pt Satisfied with anesthetic care Epidural: Removed without complications and With tip intact
[2023-01-09] MEDS ORDERED: NALBUPHINE HCL INJ 10 MG/ML AMP IV PRN (21:22)
[2023-01-09] MEDS ORDERED: NALOXONE HCL 0.08 MG in SYRINGE 1.8 ML IV PRN (21:22)
[2023-01-09] MEDS ORDERED: NALOXONE HCL 1 MG in SODIUM CHLORIDE 0.9% 1000ML 1,000 ML IV PRN (21:22)
[2023-01-09] MEDS ORDERED: LACTATED RINGER'S 500 ML IV PRN (21:22)
[2023-01-09] MEDS ORDERED: NALOXONE HCL 0.4 MG/1 ML VIAL/CARP IV PRN (21:22)
[2023-01-09] MEDS ORDERED: MoRPHine SULFATE PF 1 MG/ML 10 ML AMP/VIAL INT SPINAL ONE (21:22)
[2023-01-09] MEDS ORDERED: MEPERIDINE HCL 25 MG/ML CARP/VIAL IV PRN (21:22)
[2023-01-09] MEDS ORDERED: ePHEDrine sulfate 50 MG/ML AMP IV PRN (21:22)
[2023-01-09] MEDS ORDERED: NO NARCOTICS OR SEDATIVES SCH (21:30)
[2023-01-09] MEDS ORDERED: SODIUM CHLORIDE 0.9% 1000ML 1,000 ML IV SCH (21:30)
[2023-01-09] MEDS ORDERED: DC INTRASPINAL MORPHINE SCH (21:30)
[2023-01-09] MEDS: SIMETHICONE 80 MG CHEW PO SCH (21:50)
[2023-01-09] MEDS: DOCUSATE SODIUM 100 MG CAP PO SCH (21:50)
[2023-01-10] MEDS ORDERED: Nursing to Pharmacy Communication SCH (02:15)
--- NOTE | 2023-01-10 03:40 | Obstetrical Progress Note ---
Date of Service January 10, 2023 Assessment & Plan (1) Elevated temperature: Plan: -reviewed pt's labor course in the setting of nurse report. 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 Abdomen is appropriately tender, did not have intensified pain at uterus with palpation. Repeat temp in the room shortly after the elevated one is 37. Given exam is benign and temp is normal now without having had anti-pyretics, will monitor. Discussed if she has additional temp, would treat her as endometritis Admission and Anticipated Discharge Date Admission Date: January 08, 2023 Subjective Resting comfortably. Called by nursing that she had a temp of 37.6, then had a temp of 38.6. Physical Exam Respiratory: normal respiratory effort; no respiratory distress and no labored breathing Gastrointestinal (Abdomen): abd soft, appropriately tender at fundus. Results & Data Vital Signs (Past 12 Hours) Vital Signs Temp Pulse Pulse Resp BP Pulse Ox O2 Del Method 01/10/23 02:30 18 95 01/10/23 02:30 99.9 F H 01/10/23 03:05 20 95 01/10/23 03:05 101.5 F H 84 20 104/69 95 Room Air 01/10/23 01:40 16 93 01/10/23 00:05 16 95 01/09/23 23:45 98.4 F 96 H 18 111/74 97 Room Air 01/09/23 23:10 18 96 01/09/23 21:00 99.5 F 83 18 104/70 95 Room Air 01/09/23 22:25 18 96 01/09/23 21:00 16 96 01/09/23 20:15 20 97 01/09/23 19:30 18 96 01/09/23 17:45 18 99 01/09/23 17:30 97.9 F 79 16 120/82 99 Room Air 01/09/23 16:45 16 99 PG Care Time/CCT Total # of Minutes Spent Total Time Spent with Patient: Total time spent is greater than 50% in coordination of care (as documented) at patient's floor/unit and/or counseling patient: Coding Level of Care Code None Diagnoses Elevated temperature R50.9
--- NOTE | 2023-01-10 07:24 | Obstetrical Progress Note ---
Date of Service January 10, 2023 Assessment & Plan (1) Encounter for care and examination after delivery: (2) Elevated temperature: Plan 27 yo POD 1 from [facility], doing well -Meeting all pp milestones. Had one elevated temp overnight with normal repeat w/o anti-pyretics in b/w, maternal HR stable from prior, did not show evidence of tachy. If has another temp will discuss tx for endometritis -O+/rubella immune/ -f/u 6 weeks for appt, continue routine pp care. Awaiting void, will take dressing off in shower Subjective Ambulation: ambulating normally Passing Gas:: Yes Diet Tolerance:: regular diet Lochia:: Small Feeding Type:: breast feeding Pain well managed with medication. Chavez just out, not yet voided Review of Systems Denies fevers, chills, n/v, MARIEE, CP, SOB Physical Exam Constitutional WD/WN, vitals as above no acute distress Respiratory normal respiratory effort, lungs clear to auscultation Cardiovascular RRR, no murmur, no edema Gastrointestinal (Abdomen) Percussion/Palpation: abdomen soft; abdomen nontender fundus firm at umbilicus and NT. Dressing c/d/i Musculoskeletal BLE symmetric, nonerythematous, nontender Results & Data Vital Signs (Past 12 Hours) Vital Signs Temp Pulse Resp BP Pulse Ox O2 Del Method 01/10/23 06:16 18 95 01/10/23 05:12 16 94 01/10/23 04:00 18 93 01/10/23 03:35 98.6 F 01/10/23 02:30 18 95 01/10/23 02:30 99.9 F H 01/10/23 03:05 20 95 01/10/23 03:05 101.5 F H 84 20 104/69 95 Room Air 01/10/23 01:40 16 93 01/10/23 00:05 16 95 01/09/23 23:45 98.4 F 96 H 18 111/74 97 Room Air 01/09/23 23:10 18 96 01/09/23 21:00 99.5 F 83 18 104/70 95 Room Air 01/09/23 22:25 18 96 01/09/23 21:00 16 96 01/09/23 20:15 20 97 01/09/23 19:30 18 96
[2023-01-10 07:27] LABS: Hematocrit (blood only) 33.8 % (37.0-47.0); Hemoglobin 11.5 g/dl (12.0-16.0); Mean Corpuscular Hemoglobin 27.3 pg (25.0-34.0); Mean Corpuscular Volume 80.1 fL (80.0-100.0); Mean Platelet Volume 11.4 fL (9.4-12.4); Platelet Count 166 K/uL (130-400); RDW Coefficient of Variation 18.3 % (11.5-14.5); RDW Standard Deviation 52.8 fL (36.4-46.3); Red Blood Count 4.22 M/uL (4.20-5.40); White Blood Count 24.57 K/ul (4.8-10.8)
[2023-01-10 07:54] LABS: Basophils # (auto) 0.04 K/uL (0-0.2); Basophils % (auto) 0.2 %; Echinocytes 1+; Eosinophils # (auto) 0.02 K/uL (0-0.50); Eosinophils % (auto) 0.1 %; Immature Granulocytes # (auto) 0.23 K/uL (0.01-0.20); Immature Granulocytes % (auto) 0.9 %; Lymphocytes # (auto) 1.77 K/uL (1.2-3.4); Lymphocytes % (auto) 7.2 %; Monocytes # (auto) 1.36 K/uL (0.11-0.59); Monocytes % (auto) 5.5 %; Neutrophils # (auto) 21.15 K/uL (1.40-6.50); Neutrophils % (auto) 86.1 %; Polychromasia 1+; Toxic Granulation 1+; Toxic Vacuolation 1+
[2023-01-10] MEDS: PRENATAL VITAMIN 1 TAB PO SCH (08:35)
[2023-01-10] MEDS: SIMETHICONE 80 MG CHEW PO SCH ×4 (08:35→20:36)
[2023-01-10] MEDS: FERROUS SULFATE 325 MG TAB PO SCH (08:35)
[2023-01-10] MEDS: DOCUSATE SODIUM 100 MG CAP PO SCH ×2 (08:35→20:36)
[2023-01-10] MEDS ORDERED: CITRIC ACID/SODIUM CITRATE 15 ML UDC PO SCH (11:00)
[2023-01-10] MEDS: oxyCODONE/ACETAMINOPHEN 5mg/325mg TAB PO PRN ×2 (13:05→23:25)
[2023-01-10] MEDS: IBUPROFEN 600 MG TAB PO PRN ×2 (13:05→23:24)
[2023-01-10] MEDS ORDERED: bisacodyL 5 MG TABEC PO SCH (20:00)
[2023-01-11 06:25] LABS: Hematocrit (blood only) 30.4 % (37.0-47.0)
--- NOTE | 2023-01-11 07:27 | Obstetrical Progress Note ---
Date of Service January 11, 2023 Assessment & Plan (1) Encounter for care and examination after delivery: (2) Elevated temperature: Plan 27 yo POD 1 from [facility], doing well -Meeting all pp milestones. Has not had further fevers, HR remains stable and no further s/s of infection. Continue to monitor -O+/rubella immune/ -f/u 6 weeks for appt, continue routine pp care Subjective Ambulation: ambulating normally Voiding: no voiding problems Passing Gas:: Yes Diet Tolerance:: regular diet Lochia:: Small Feeding Type:: breast feeding Pain well managed with medication. Review of Systems Denies fevers, chills, n/v, MARIEE, CP, SOB Physical Exam Constitutional WD/WN, vitals as above no acute distress Respiratory normal respiratory effort, lungs clear to auscultation Cardiovascular RRR, no murmur, no edema Gastrointestinal (Abdomen) Percussion/Palpation: abdomen soft; abdomen nontender fundus firm at umbilicus and NT. Incision c/d/i Musculoskeletal BLE symmetric, nonerythematous, nontender Results & Data Vital Signs (Past 12 Hours) Vital Signs Temp Pulse Resp BP Pulse Ox O2 Del Method 01/11/23 03:30 97.7 F 98 H 16 116/68 99 Room Air 01/10/23 23:45 97.7 F 100 H 18 112/75 98 Room Air 01/10/23 20:00 98.6 F 99 H 18 115/77 99 Room Air
[2023-01-11] MEDS: IBUPROFEN 600 MG TAB PO PRN ×3 (08:40→22:59)
[2023-01-11] MEDS: oxyCODONE/ACETAMINOPHEN 5mg/325mg TAB PO PRN ×2 (08:40→16:38)
[2023-01-11] MEDS: SIMETHICONE 80 MG CHEW PO SCH ×5 (08:40→19:53)
[2023-01-11] MEDS: FERROUS SULFATE 325 MG TAB PO SCH (08:47)
[2023-01-11] MEDS: PRENATAL VITAMIN 1 TAB PO SCH (08:47)
[2023-01-11] MEDS: DOCUSATE SODIUM 100 MG CAP PO SCH ×2 (08:47→19:53)
[2023-01-11] MEDS ORDERED: bisacodyL 10 MG SUPP PR PRN (13:01)
--- NOTE | 2023-01-12 08:41 | Obstetrical Progress Note ---
Date of Service January 12, 2023 Assessment & Plan (1) Encounter for care and examination after delivery: POD#3 doing well. Rx Percocet #[address] [facility] pharmacy. Reviewed postop instructions. Followup 6w in office. Incision CDI. Subjective Ambulation: ambulating normally Voiding: no voiding problems Diet Tolerance:: regular diet Lochia:: Moderate Review of Systems All systems reviewed & are unremarkable except as noted in HPI & below Physical Exam Constitutional WD/WN, vitals as above no acute distress Respiratory normal respiratory effort Cardiovascular Rate/Rhythm: regular rate and regular rhythm Gastrointestinal (Abdomen) Inspection/Auscultation: abdomen normal to inspection; abdomen not distended Percussion/Palpation: abdomen soft Genitourinary OB Exam Abdomen: + fundal height Fundus: + firm; not tender Results & Data Vital Signs (Past 12 Hours) Vital Signs Temp Pulse Resp BP Pulse Ox O2 Del Method 01/12/23 08:00 36.8 C 83 16 122/76 99 Room Air 01/11/23 22:56 36.7 C 103 H 18 106/70 Room Air
[2023-01-12] MEDS: PRENATAL VITAMIN 1 TAB PO SCH (08:51)
[2023-01-12] MEDS: FERROUS SULFATE 325 MG TAB PO SCH (08:51)
[2023-01-12] MEDS: DOCUSATE SODIUM 100 MG CAP PO SCH (08:51)
[2023-01-12] MEDS: SIMETHICONE 80 MG CHEW PO SCH ×2 (08:51→13:31)
[2023-01-12] MEDS: IBUPROFEN 600 MG TAB PO PRN ×2 (08:51→13:31)
--- NOTE | 2023-01-14 06:46 | Discharge Summary ---
Date of Service January 14, 2023 Admission HPI Per Admitting Provider Patient is a 27-year-old G1, P0 currently at 40 weeks 0 days gestational age. Patient presents with bleeding and discharge. She is reporting some irregular contractions and is unsure about leakage of fluid. has been uncomplicated to date. OB Labs: Blood Type O Positive 06/01/22 Antibody Screen NEGATIVE 06/01/22 Hemoglobin 10.0 g/dl (12.0-16.0) L 10/19/22 Hematocrit 31.5 % (37.0-47.0) L 10/19/22 Mean Corpuscular Volume 83.4 fL (80.0-100.0) 06/01/22 Platelet Count 208 K/uL (130-400) 06/01/22 Rubella IgG Antibody Immune (Immune) 06/01/22 Rapid Plasma Reagin Nonreactive (Nonreactive) 06/01/22 Hepatitis B Surface Antigen. NON-REACTIVE (NON-REACTIVE) 06/01/22 Hepatitis C Antibody (EIA) NON-REACTIVE (NON-REACTIVE) 06/01/22 HIV (1&2) Ag and Ab Confirmation NON-REACTIVE (NON-REACTIVE) 06/01/22 Glucose 1 Hour 50 gm Load 111 mg/dl (70-130) 10/19/22 OB Optional Labs: Chlamydia trachomatis RNA Not Detected (NotDetected) 06/01/22 Neisseria gonorrhoeae RNA Not Detected (NotDetected) 06/01/22 Labs Reviewed: Declines cf/sma/cfdna/quad screen--mln Admission Exam (Per Admitting) Constitutional Constitutional: WD/WN, vitals as above Gastrointestinal (Abdomen): Percussion/Palpation: abdomen soft; abdomen nontender, no guarding and abdomen not rigid Psychiatric: A+Ox3, euthymic affect Genitourinary: normal external appearance OB Exam Abdomen: + vertex Manual OB Exam: + cervical dilation fingertip, + cervical effacement 50% and + station high OB Exam Monitor Tracing: + external FHT monitor used, + external uterine monitor used, + category I and + normal FHT variability There is noted to be a roughly golf ball sized clot on speculum exam. No bright red bleeding noted. Urine was noted to be bloody. There is noted to be equivocal pooling and positive ferning. Discharge Data Consultations 01/08/23 07:34 Consult Anesthesiology Stat Procedures Performed Operation Date: 01/09/23 11:45 Actual Procedures p Section in LD(Bilateral) - Ann Torres MD Hospital Course (1) Encounter for care and examination after delivery: 27 yo G1 at 40 1/7 wga presented one day ago with premature rupture of membranes and found to be 0.5cm. She was started on pitocin and received an epidural for pain control. She was checked around 6pm and found to be 3cm, forebag ruptured at that time. She continued to make slow progress to 5-6cm. On recheck this morning was still the same but anterior cervix was noted to have swelled. She was counseled regarding this but given progress, induction was continued. IUPC was placed to help titrate pitocin however baseline began increasing and was slightly tachycardic. Cervix continued to remain unchanged. She was counseled regarding continued induction vs CS and opted for CS. See op report for details. Overnight on POD0 she had one elevated temp w/o tachycardia or s/s of infeciton, immediate repeat was normal so expectant management opted for with plan to start antibiotics if another fever occurred. Remainder of postop course was uncomplicated and she was discharged home on POD3 Coding Level of Care Code None Diagnoses Encounter for care and examination after delivery Z39.2
== END 2023-01-12 15:30 | disposition home or self-care (01) | DRG 787 ==
LOC: OPB 05:57 → 4S1 06:09 → 4E2 01-09 15:35